=== PATIENT | female | born 1930 | race Caucasian/White ===

== ENCOUNTER 2018-03-21 15:10 | Inpatient (IN) ==
[2018-03-21] MEDS ORDERED: PROMETHAZINE 25 MG TABLET PO ONE (15:41)
--- NOTE | 2018-03-21 15:51 | Emergency Department Note ---
Nausea/Vomiting/Diarrhea HPI - General Chief complaint: Nausea/Vomiting/Diarrhea Stated complaint: nauseous Time Seen by Provider: 03/21/18 15:25 Source: patient Mode of arrival: wheelchair Limitations: no limitations - History of Present Illness HPI Narrative: 87-year-old female presents with nausea since yesterday. She states she has felt sick for about 3 weeks. She has been here very frequently in the last week. She was diagnosed with a sinus infection Levaquin and is taking 500 mg daily. She also fell 2 days ago and has a broken rib. She was taking tramadol for this but stopped taking it yesterday because she was feeling nauseated and thought it was making her nauseous. She has had a couple bowel movements yesterday which were small and loose. She takes Linzess which makes her stools loose. She is also got chronic constipation. She denies any abdominal pain. She states she has left-sided rib pain. She denies cough. She states her sinus stuff is better. She denies any urinary symptoms. She states she just feels sick and it comes and goes. - Related Data Home Medications Medication Instructions Recorded Confirmed latanoprost 0.005 % eye drops 1 drp OPHTHALMIC QDAY ml 12/04/14 03/08/18 linaclotide 290 mcg capsule 290 mcg PO QDAY 09/25/15 03/08/18 zolpidem 5 mg tablet 5 mg PO QHS PRN 30 Days #30 tab 09/11/17 03/08/18 Previous Rx's Medication Instructions Recorded amlodipine 5 mg tablet 5 mg PO QDAY #90 tab 10/05/17 losartan 50 mg tablet 50 mg PO QDAY #90 tab 10/05/17 omeprazole 20 mg capsule,delayed 20 mg PO QDAY #90 cap 10/05/17 release amoxicillin 875 mg tablet 875 mg PO BID #20 tab 03/08/18 Levofloxacin [Levaquin] 500 mg PO DAILY #10 tab 03/16/18 traMADol [Ultram] 50 mg PO Q6HP PRN #30 tab 03/18/18 Allergies Allergy/AdvReac Type Severity Reaction Status Date / Time No Known Drug Allergies Allergy Verified 03/18/18 06:23 Review of Systems All systems ED: reviewed and negative except as stated. Past Medical History - Past Medical History Medical history: Reports: arthritis, CHF, hyperlipidemia, hypertension, renal disease, other Psychiatric history: Reports: no psych history [employer]KE[employer] history: Reports: non-contributory Surgical history ED: Reports: other (no abdominal surgeries) Family history: Reports: non-contributory - Social History smoking status: Former smoker Alcohol use: Reports: None Drug use: Reports: none Physical Exam Limitations: no limitations General appearance: alert, in no apparent distress Head: atraumatic Eye: Present: normal appearance. Absent: conjunctival injection Neck: Present: normal inspection, full ROM Chest: Present: normal inspection, symmetric chest wall rise, tenderness (Right side lower ribs tender) Respiratory: Present: other (Mild decreased left lower lobe due to splinting). Absent: rales/crackles Cardiovascular: Present: regular rate, normal heart sounds Abdominal: Present: soft, normal bowel sounds. Absent: tenderness Extremities: Present: normal inspection, full ROM Neurological: Present: alert, oriented X3 Psychiatric: Present: normal affect, normal mood Skin: Present: warm, dry, intact Course Vital Signs Temperature 98.6 F 03/21/18 15:10 Pulse Rate 73 03/21/18 15:10 Respiratory Rate 14 03/21/18 15:10 Blood Pressure 153/83 03/21/18 15:10 Pulse Oximetry (%) 98 03/21/18 15:10 Temperature 98.6 F 03/21/18 15:10 Pulse Rate 84 03/21/18 19:12 Respiratory Rate 18 03/21/18 19:12 Blood Pressure 172/85 03/21/18 19:12 Pulse Oximetry (%) 100 03/21/18 19:12 Nausea/Vomiting/Diarrhea - Lab Data Lab results reviewed: Yes I reviewed the patient's lab results. Result diagrams: 03/21/18 16:40 03/21/18 16:40 Lab Results 03/21/18 03/21/18 03/21/18 Range/Units 16:33 16:40 16:40 WBC 11.4 H (4.5-11.0) K/mcL RBC 4.37 (4.00-5.20) M/mcL Hgb 13.0 (12.0-15.0) g/dL Hct 38.3 (36.0-48.0) % MCV 87.7 (80.0-100.0) fL MCH 29.6 (26.0-34.0) pg MCHC 33.8 (31.0-36.0) g/dL RDW 13.4 (11.5-14.5) % Plt Count 253 (140-440) K/mcL MPV 8.9 (7.4-10.4) fL Gran % 78.0 (38.0-78.0) % Lymph % (Auto) 12.6 L (15.5-49.0) % [place] % (Auto) 7.7 (1.0-12.0) % Eos % (Auto) 1.1 (0.0-7.0) % Baso % (Auto) 0.6 (0.0-2.0) % Gran # 8.9 H (1.8-8.0) K/mcL Lymph # (Auto) 1.4 L (1.5-4.8) K/mcL [place] # (Auto) 0.9 (0.1-0.9) K/mcL Eos # (Auto) 0.1 (0.0-0.7) K/mcL Baso # (Auto) 0.1 (0.0-0.3) K/mcL Sodium 125 L (133-145) mmol/L Potassium 4.0 (3.3-5.1) mmol/L Chloride 88 L (96-108) mmol/L Carbon Dioxide 23 (22-30) mmol/L Anion Gap 14.0 (8-16) BUN 21 (8-23) mg/dl Creatinine 1.1 (0.6-1.1) mg/dl GFR Calculation 45 Glucose 113 H (70-105) mg/dL Calcium 9.1 (8.6-10.4) mg/dl Total Bilirubin 0.5 (0.0-1.0) mg/dL AST 26 (0-37) U/l ALT 20 (0-40) U/l Alkaline Phosphatase 102 (39-117) U/L Total Protein 7.5 (5.9-8.4) gm/dL Albumin 4.2 (3.2-5.2) gm/dL Globulin 3.3 (2.2-3.7) gm/dL Albumin/Globulin Ratio 1.3 (1.0-2.3) Urine Color Yellow Urine Appearance Hazy Urine pH 6.0 (5.0-9.0) Ur Specific [place] 1.017 (1.000-1.035) Urine Protein Neg (NEG) mg/dL Urine Glucose (UA) Negative (NEG) mg/dL Urine Ketones Neg (NEG) mg/dL Urine Occult Blood Neg (<0.03) mg/dL Urine Nitrate Neg (NEG) Urine Bilirubin Neg (NEG) mg/dL Urine Urobilinogen Neg (NEG) mg/dL Ur Leukocyte Esterase 25 A (NEG) /uL Urine RBC 4 H (0-1) /hpf Urine WBC 12 H (0-4) /hpf Ur Squamous Epith Cells 7 H (0-4) /hpf Ur Transition Epith Cell < 1 (0-2) /hpf Urine Bacteria 0 (0) /hpf Hyaline Casts 7 H (0-2) /lpf Urine Mucus Few (0) /hpf Ur Culture Indicated? No - Radiology Data Radiology results reviewed: Yes I reviewed the patient's radiology results. Mild stable cardiomegaly. Nonspecific stool gas pattern - most likely represents an atypical ileus Disposition Pt seen by BUS STARTER/PA only: Yes Clinical Impression: Hyponatremia, Ileus, Nausea, Rib fracture Disposition: Xfer As Inpt ([facility]) Condition: Fair Referrals: Tarik Dean MD [Primary Care Provider] -
--- NOTE | 2018-03-21 17:15 | XRay Report ---
CLINICAL INFORMATION: nausea COMPARISON: 03/17/2018 FINDINGS: Stomach is mildly dilated contains moderate fluid. Small bowel is grossly normal. The transverse colonic segment is mildly dilated with decompression of the descending and rectosigmoid region. No free air. IMPRESSION: Nonspecific stool gas pattern - most likely represents an atypical ileus Interpreted and Authenticated by: Mikel Benitez 03/21/18
--- NOTE | 2018-03-21 17:17 | XRay Report ---
CLINICAL INFORMATION: weakness, rib fx COMPARISON: 03/18/2018 FINDINGS: Mild cardiomegaly is unchanged. Mediastinum and pulmonary vessels are normal. Calcified granulomas in the perihilar region seen as before - lungs are otherwise. No effusions. IMPRESSION: Mild stable cardiomegaly. Interpreted and Authenticated by: Mikel Benitez 03/21/18
[2018-03-21 17:36] LABS: Appearance,Urine HAZY; Bacteria,Urine 0 /hpf (0); Bilirubin,Urine NEG (NEG); Color,Urine YELLOW; Glucose,Urine (UA) NEGATIVE (NEG); Leukocyte Esterase,Urine 25 /uL (NEG); Mucus,Urine FEW /hpf (0); Protein,Urine NEG (NEG); Specific Gravity,Urine 1.017 (1.000-1.035); Urine Blood NEG mg/dL (<0.03); Urine Hyaline Cast 7 /lpf (0-2); Urine RBC 4 /hpf (0-1); Urine Squamous Epithelial Cell 7 /hpf (0-4); Urine Transitional Epi Cells < 1 /hpf (0-2); Urine WBC 12 /hpf (0-4); Urobilinogen,Urine NEG (NEG)
[2018-03-21 17:39] LABS: Basophils # (Auto) 0.1 K/mcL (0.0-0.3); Basophils % (Auto) 0.6 % (0.0-2.0); Eosinophils # (Auto) 0.1 K/mcL (0.0-0.7); Eosinophils % (Auto) 1.1 % (0.0-7.0); Lymphocytes # (Auto) 1.4 K/mcL (1.5-4.8); Lymphocytes % (Auto) 12.6 % (15.5-49.0); Mean Cell Volume 87.7 fL (80.0-100.0); Mean Corpuscular HGB Conc 33.8 g/dL (31.0-36.0); Mean Corpuscular Hemoglobin 29.6 pg (26.0-34.0); Monocytes # (Auto) 0.9 K/mcL (0.1-0.9); Monocytes % (Auto) 7.7 % (1.0-12.0); Platelet Count 253 K/mcL (140-440); RBC 4.37 M/mcL (4.00-5.20); Red Cell Distribution Width 13.4 % (11.5-14.5)
[2018-03-21 17:52] LABS: ALT/SGPT 20 U/l (0-40); Albumin 4.2 gm/dL (3.2-5.2); Albumin/Globulin Ratio 1.3 (1.0-2.3); Alkaline Phosphatase 102 U/L (39-117); Blood Urea Nitrogen 21 mg/dl (8-23)
[2018-03-21] MEDS ORDERED: METOCLOPRAMIDE 5 MG TABLET PO ONE (18:13)
[2018-03-21] MEDS ORDERED: PROCHLORPERAZINE MALEATE 10 MG TABLET PO ONE (18:31)
[2018-03-21] MEDS ORDERED: ELECTROLYTE,ORAL 1,000 ML SOLUTION PO ONE (18:38)
--- NOTE | 2018-03-21 20:38 | Internal Med History&Physical ---
Medical - H&P: HPI Patient information: Note initiated : 03/21/18 at 8:32 pm Service Date, if different from initiated Date: [] Patient: Hany Barfield 87 y/o F admitted on for nauseous. Chief Complaint: [] History of present illness: Ms. Barfield is a 87 year old F with history of chronic kidney disease, chronic constipation on Linzess, presented to the emergency room today for not feeling well. The patient notes that she just does not feel well, nauseous for the last day or 2, wants to vomit but not able to. She also has not had any bowel movement since yesterday. She denies any other complaints. She has chest pain on the left side due to a recent fracture. She denies any fever chills just notes she is not feeling well is weak and has some dizziness. The patient notes that usually she has loose stools, because she takes Linzess for chronic constipation and since yesterday has not had any bowel movements. She notes that she has been taking her Linzess on a regular basis. The patient has not been feeling well for the last 3 weeks, she has been seen in the ED 4 times, and once in the clinic. This is excluding this visit. On reviewing the ED notes it seems that she was seen on 03 March for chest pain, workup was negative. Then she was seen on the in the primary care clinic for upper respiratory tract symptoms. She was prescribed amoxicillin at that time. She notes that she was compliant with same. Her symptoms do not resolve with this prescription. She was seen on 16 March for cold flulike symptoms possible sinusitis, and amoxicillin was changed to levofloxacin and she was given a 10-day oral course. On 17 March the very next day the patient was seen in the ED for abdominal pain discomfort obstruction and constipation. She had an x-ray which showed possible obstruction CT of the abdomen was done which was negative for acute obstructive process. She was given an enema in the ED which helped. On 18 March the patient notes that she fell from the chair and was seen again in the ED for left sided chest pain and it was noted that she had a fracture on 1 rib. She was prescribed some tramadol, which she notes made her feel nauseous. And she stopped taking it. She presented today with symptoms as mentioned above. In the ER patient is afebrile temperature 98.6, heart rate 73 respirations 14, blood pressure 125/69 saturating 100% on room air, She has a mild leukocytosis WBC count of 11.4, hemoglobin 13 platelets 253, sodium is low at 125 potassium 4.0 bicarbonate 23 chloride 88 creatinine 1.1 glucose 113, UA has mild leukocyte esterase positive. Chest x-ray is negative shows mild stable cardiomegaly. Abdominal x-ray done shows nonspecific stool pattern possible Ileus Given patient's low sodium weakness some nausea and multiple rounds to the ED the patient is being admitted to the hospital for further management. The patient admits to having decreased oral intake for the last 2 days, she notes that she has been trying to keep yourself hydrated before that but did not eat very much. 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) Chronic Kidney Disease (Chronic) Renal insufficiency (Chronic 08/26/12) Renal artery stenosis (Chronic 08/06/14) Proteinuria (Chronic) Malignant lymphoma (Chronic) Hypertensive renal disease (Chronic) Essential hypertension (Chronic) Hyperlipidemia (Chronic) Glaucoma (Chronic) Constipation (Chronic) Chronic kidney disease, stage III (moderate) (Chronic) 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/06/14) Anemia, iron deficiency (Chronic) 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) Non-Hodgkin's lymphoma (Chronic) Surgical history: Past Surgical History (Last Reviewed 03/08/18 @ 11:39 by Sahara Ferris PA-C) History of colonoscopy (Chronic 02/27/15) History of reduction mammoplasty (Chronic) History of hysterectomy (Chronic) History of cholecystectomy (Chronic) History of esophagogastroduodenoscopy (Chronic 02/27/15) Pertinent family history: Family History (Last Reviewed 03/08/18 @ 11:39 by Sahara Ferris PA-C) Mother Malignant neoplasm of breast Essential hypertension Sister Malignant neoplasm of ovary Brother Malignant neoplasm of prostate Medical - H&P: Meds Home Medications Medication Instructions Recorded Confirmed Type latanoprost 0.005 % eye drops 1 drp OPHTHALMIC QDAY ml 12/04/14 03/21/18 History linaclotide 290 mcg capsule 290 mcg PO QDAY 09/25/15 03/21/18 History zolpidem 5 mg tablet 5 mg PO QHS PRN 30 Days #30 tab 09/11/17 03/21/18 History amlodipine 5 mg tablet 5 mg PO QDAY #90 tab 10/05/17 03/21/18 Rx losartan 50 mg tablet 50 mg PO QDAY #90 tab 10/05/17 03/21/18 Rx omeprazole 20 mg capsule,delayed 20 mg PO QDAY #90 cap 10/05/17 03/21/18 Rx release Levofloxacin [Levaquin] 500 mg PO DAILY #10 tab 03/16/18 03/21/18 Rx traMADol [Ultram] 50 mg PO Q6HP PRN #30 tab 03/18/18 03/21/18 Rx Allergies Allergy/AdvReac Type Severity Reaction Status Date / Time No Known Drug Allergies Allergy Verified 03/18/18 06:23 Medical - H&P: Exam - Constitutional Vitals: Temp Pulse Resp BP Pulse Ox 98.6 F 84 18 172/85 100 03/21/18 15:10 03/21/18 19:12 03/21/18 19:12 03/21/18 19:12 03/21/18 19:12 Exam: GENERAL: The patient is a well-developed, well-nourished in no apparent distress. Is alert and oriented x3. VITAL SIGNS: Reviewed and as noted elsewhere. HEENT: Head is normocephalic and atraumatic. Extraocular muscles are intact. Pupils are equal, round, and reactive to light. Nares appeared normal. Mouth appears any without lesions. Mucous membranes are moist. NECK: Normal to inspection, Supple, No lymphadenopathy or thyromegaly. LUNGS: Air entry equal on both sides, no wheezing, crackles or rhonchi noted. No accessory muscles of respiration HEART: Regular rate and rhythm normal, S1 and S2 heard, no Gallop, S3 or Rub Noted, No Gross murmur heard. ABDOMEN: Soft, nontender, and mild distention in the hypogastric region. Hypoactive bowel sounds. No hepatosplenomegaly was noted. EXTREMITIES: No cyanosis, clubbing, rash, lesions or edema. NEUROLOGIC: Cranial nerves II through XII are grossly intact. Motor and Sensory System Grossly Intact PSYCHIATRIC: Normal affect, Normal Mood. Appropriate Behavior. SKIN: No ulceration or wounds noted, No jaundice, No rash noted. Medical - H&P: Reslt - Labs CBC & Chem 7: 03/21/18 16:40 03/21/18 16:40 Labs: Short CBC 03/21/18 Range/Units 16:40 WBC 11.4 H (4.5-11.0) K/mcL Hgb 13.0 (12.0-15.0) g/dL Hct 38.3 (36.0-48.0) % Plt Count 253 (140-440) K/mcL BMP 03/21/18 16:40 Sodium 125 L Potassium 4.0 Chloride 88 L Carbon Dioxide 23 BUN 21 Creatinine 1.1 Glucose 113 H Calcium 9.1 Liver Function 03/21/18 Range/Units 16:40 Total Bilirubin 0.5 (0.0-1.0) mg/dL AST 26 (0-37) U/l ALT 20 (0-40) U/l Alkaline Phosphatase 102 (39-117) U/L Albumin 4.2 (3.2-5.2) gm/dL Urine 03/21/18 Range/Units 16:33 Urine Color Yellow Urine Appearance Hazy Urine pH 6.0 (5.0-9.0) Ur Specific [place] 1.017 (1.000-1.035) Urine Protein Neg (NEG) mg/dL Urine Glucose (UA) Negative (NEG) mg/dL Medical - H&P: A/P - Narrative A/P Narrative: A/P Hyponatremia Nausea Constipation. Urinary tract infection. Chronic Kidney Disease Dehydration Poor oral intake h/o colectomy Sinusitis/ resolved. Plan Admit to med surg IV saline for tonight for hydration, check urine osm, serum osm, urine sodium, Tsh IV rocehin for now, should cover sinusitis and UTI bugs, pt notes she has chr urinary frequency no real change from baseline. IV ppi, and zofran for nausea. Ileus, will be managed medically, recent CT is neg, will see if she has BM by tomorrow if not repeat CT abdomen, before going for more aggresive treatment Given her recent use of 2 broad spectrum ABX, will check cdiff Renal function is stable. DVT hep sq Diet regular Full code. Social History - Tobacco smoking status: Former smoker - Alcohol alcohol intake frequency: does not drink
[2018-03-21] MEDS ORDERED: NALOXONE HCL 0.4 MG/ML VIAL IV PRN (20:46)
[2018-03-21] MEDS ORDERED: ONDANSETRON 4 MG/2 ML VIAL IV PRN (20:46)
[2018-03-21] MEDS ORDERED: cefTRIAXone 1 GM in DEXTROSE 5% IN WATER 50 ML IV SCH (20:46)
[2018-03-21] MEDS ORDERED: ALBUTEROL SULFATE 2.5 MG/3 ML NEBULIZER NEB PRN (20:46)
[2018-03-21 21:35] LABS: Osmolality,Urine 476 mOsm/kg (80-1000)
[2018-03-21] MEDS: 0.9 % SODIUM CHLORIDE 1,000 ML IV SCH (22:18)
[2018-03-21] MEDS: HEPARIN 5,000 UNIT/ML VIAL SQ SCH (22:22)
[2018-03-21] MEDS: ACETAMINOPHEN 650 MG/65 ML BOTTLE IV SCH (22:24)
[2018-03-21] MEDS: 0.9 % SODIUM CHLORIDE 10 ML SYRINGE IV SCH (22:25)
[2018-03-21] MEDS: PANTOPRAZOLE 40 MG VIAL IV SCH (22:34)
[2018-03-21] MEDS: cefTRIAXone 1 GM VIAL IV SCH (22:36)
[2018-03-22] MEDS: 0.9 % SODIUM CHLORIDE 10 ML SYRINGE IV SCH ×3 (06:15→20:47)
[2018-03-22] MEDS ORDERED: BISACODYL 10 MG SUPP.RECT PR ONE (06:41)
[2018-03-22] MEDS ORDERED: POLYVINYL ALCOHOL OPHTH DROPS 15ML BOTTLE OU PRN (06:46)
[2018-03-22] MEDS: PANTOPRAZOLE 40 MG VIAL IV SCH ×2 (06:59→17:35)
[2018-03-22] MEDS: HEPARIN 5,000 UNIT/ML VIAL SQ SCH ×2 (08:50→20:42)
[2018-03-22] MEDS: LOSARTAN 50 MG TABLET PO SCH (08:52)
[2018-03-22] MEDS: amLODIPine 5 MG TABLET PO SCH (08:52)
[2018-03-22] MEDS: ACETAMINOPHEN 650 MG/65 ML BOTTLE IV SCH ×3 (08:54→20:43)
--- NOTE | 2018-03-22 08:55 | XRay Report ---
CLINICAL INFORMATION: ileus COMPARISON: 03/21/2018 FINDINGS: The entire gastrointestinal tract is now decompressed with only minimal gas in the stomach, small bowel and colon. No free air, soft tissue mass, organomegaly or pathologic calcification. IMPRESSION: Decompressed gastrointestinal tract typically indicative of poor oral intake, nausea/vomiting and/or diarrhea. No evidence of bowel obstruction Interpreted and Authenticated by: Mikel Benitez 03/22/18
[2018-03-22 11:17] LABS: Basophils # (Auto) 0 K/mcL (0.0-0.3); Basophils % (Auto) 0.5 % (0.0-2.0); Eosinophils # (Auto) 0.1 K/mcL (0.0-0.7); Eosinophils % (Auto) 1.6 % (0.0-7.0); Granulocytes % (Auto) 55.7 % (38.0-78.0); Lymphocytes # (Auto) 2.5 K/mcL (1.5-4.8); Lymphocytes % (Auto) 33.7 % (15.5-49.0); Mean Cell Volume 89.5 fL (80.0-100.0); Mean Corpuscular HGB Conc 33.7 g/dL (31.0-36.0); Mean Corpuscular Hemoglobin 30.2 pg (26.0-34.0); Monocytes # (Auto) 0.6 K/mcL (0.1-0.9); Monocytes % (Auto) 8.5 % (1.0-12.0); Platelet Count 230 K/mcL (140-440); RBC 3.79 M/mcL (4.00-5.20); Red Cell Distribution Width 14.2 % (11.5-14.5)
--- NOTE | 2018-03-22 11:30 | Internal Med Progress Note ---
Medical - PN: Subj Patient information: Note initiated : 03/22/18 at 11:29 am Service Date, if different from initiated Date: [] Patient: Hany Barfield 87 y/o F admitted on 03/21/18 for nauseous. Chief Complaint: [] Interval history: Ms. Barfield is a 87 year old F with history of chronic kidney disease, chronic constipation on Linzess, presented to the emergency room today for not feeling well. The patient notes that she just does not feel well, nauseous for the last day or 2, wants to vomit but not able to. She also has not had any bowel movement since yesterday. She denies any other complaints. She has chest pain on the left side due to a recent fracture. She denies any fever chills just notes she is not feeling well is weak and has some dizziness. The patient notes that usually she has loose stools, because she takes Linzess for chronic constipation and since yesterday has not had any bowel movements. She notes that she has been taking her Linzess on a regular basis. The patient has not been feeling well for the last 3 weeks, she has been seen in the ED 4 times, and once in the clinic. This is excluding this visit. On reviewing the ED notes it seems that she was seen on 03 March for chest pain, workup was negative. Then she was seen on the in the primary care clinic for upper respiratory tract symptoms. She was prescribed amoxicillin at that time. She notes that she was compliant with same. Her symptoms do not resolve with this prescription. She was seen on 16 March for cold flulike symptoms possible sinusitis, and amoxicillin was changed to levofloxacin and she was given a 10-day oral course. On 17 March the very next day the patient was seen in the ED for abdominal pain discomfort obstruction and constipation. She had an x-ray which showed possible obstruction CT of the abdomen was done which was negative for acute obstructive process. She was given an enema in the ED which helped. On 18 March the patient notes that she fell from the chair and was seen again in the ED for left sided chest pain and it was noted that she had a fracture on 1 rib. She was prescribed some tramadol, which she notes made her feel nauseous. And she stopped taking it. She presented today with symptoms as mentioned above. In the ER patient is afebrile temperature 98.6, heart rate 73 respirations 14, blood pressure 125/69 saturating 100% on room air, She has a mild leukocytosis WBC count of 11.4, hemoglobin 13 platelets 253, sodium is low at 125 potassium 4.0 bicarbonate 23 chloride 88 creatinine 1.1 glucose 113, UA has mild leukocyte esterase positive. Chest x-ray is negative shows mild stable cardiomegaly. Abdominal x-ray done shows nonspecific stool pattern possible Ileus Given patient's low sodium weakness some nausea and multiple rounds to the ED the patient is being admitted to the hospital for further management. The patient admits to having decreased oral intake for the last 2 days, she notes that she has been trying to keep yourself hydrated before that but did not eat very much. 03/22 Patient seen and examined, no acute overnight events, this morning sitting in the chair comfortably having a breakfast. No nausea no vomiting reported. No bowel movements. Still reports chest pain at the site of the rib fracture. The patient's abdominal x-ray shows resolution of ileus patient has not had active bowel movements. We will give her a rectal suppository. According to the x-ray the colon and the GI tract is compressed I doubt if there is a large stool load present. WBC count is now back to normal, chemistry results is pending Her urine possum was more than 100, serum awesome was 270, urine sodium was less than 20, likely secondary to GI losses or decreased oral intake. Pertinent ROS: Denies headache, dizziness Denies chest pain, palpitations Denies cough or shortness of breath Denies abdominal pain, nausea or vomiting. constipation reported - Constitutional Vitals: Vital Signs Temp Pulse Resp BP Pulse Ox 97.8 F 75 14 150/60 97 03/22/18 11:24 03/22/18 03:10 03/22/18 11:24 03/22/18 11:24 03/22/18 11:24 Period Temp Pulse Resp BP Sys/Tinsley Pulse Ox Last 24 Hr 97.5 F-98.6 F 69-85 14-20 125-178/60-85 94-100 Intake and Output 03/21/18 03/22/18 03/22/18 21:59 05:59 13:59 Intake Total 65 / 65 973 / 973 Output Total 650 / 650 600 / 600 Balance -585 / -585 373 / 373 Weight 122 lb Intake & Output: Intake & Output 03/21/18 03/22/18 03/22/18 21:59 05:59 13:59 Intake Total 65 / 65 973 / 973 Output Total 650 / 650 600 / 600 Balance -585 / -585 373 / 373 Weight 122 lb Intake: IV 65 / 65 733 / 733 Sodium Chloride 0.9% 1,000 ml @ 668 / 668 84 mls/hr IV .[id number] [facility] Rx#: [id number] Oral 0 / 0 240 / 240 Output: Void Amount 650 / 650 600 / 600 Other: Meal Breakfast Percent of Meal Consumed 100% Urine Appearance Clear Urine Color Pale Urine Odor Normal Stool Size Large Stool Color Herminio Colored Stool Consistency Soft Loose # Voids 1 # Bowel Movements 1 Exam: Constitutional; Afebrile, cooperative, alert, not in distress. Eyes- No icterus, , No periorbital swelling Ears- Ext ear normal, hearing normal to conversation. Neck- Midline trachea, supple Respiratory system: Air Entry equal on both sides, No crackles or wheezing, no rhonchi. CVS- Rate rhythm regular, S1,S2 heard, no gallop, no rub. Abdomen- Soft nontender abdomen, no organomegaly, no tenderness, no guarding or rigidity, B[employer]K T[employer]IVER- AOOx3, moving all extremities, no gross focal deficit noted. Medical - PN: Obj Da - Labs CBC & Chem 7: 03/22/18 07:30 03/21/18 16:40 Labs: Abnormal Lab Results 03/22/18 03/21/18 03/21/18 07:30 16:40 16:40 WBC RBC 3.79 L Hgb 11.4 L Hct 33.9 L Lymph % (Auto) Gran # Lymph # (Auto) Sodium 125 L Chloride 88 L Glucose 113 H Osmolality Magnesium 2.6 H TSH 5.67 H Ur Leukocyte Esterase Urine RBC Urine WBC Ur Squamous Epith Cells Hyaline Casts 03/21/18 03/21/18 03/21/18 16:40 16:33 16:30 WBC 11.4 H RBC Hgb Hct Lymph % (Auto) 12.6 L Gran # 8.9 H Lymph # (Auto) 1.4 L Sodium Chloride Glucose Osmolality 270 L Magnesium TSH Ur Leukocyte Esterase 25 A Urine RBC 4 H Urine WBC 12 H Ur Squamous Epith Cells 7 H Hyaline Casts 7 H Meds: Medications Albuterol Sulfate (Ventolin) 2.5 mg NEB Q2HP PRN PRN Reason: Shortness Of Breath Amlodipine Besylate (Norvasc) 5 mg PO QDAY [facility] Last Admin: 03/22/18 08:52 Dose: 5 mg Artificial Tears (Artificial Tears Ophth Drops) 1 gtt OU DAILYP PRN PRN Reason: Dry Eye(s) Ceftriaxone Sodium (Rocephin) 1 gm IV DAILY [facility] Last Admin: 03/21/18 22:36 Dose: 1 gm Heparin Sodium (Porcine) (Heparin) 5,000 unit SQ Q12 [facility] Last Admin: 03/22/18 08:50 Dose: 5,000 unit Sodium Chloride (Sodium Chloride 0.9%) 1,000 mls @ 84 mls/hr IV .[id number] [facility] Last Infusion: 03/22/18 06:15 Dose: 0 mls/hr Acetaminophen (Ofirmev) 650 mg in 65 mls @ 130 mls/hr IV TID [facility] Last Infusion: 03/22/18 09:24 Dose: Infused Latanoprost (Xalatan Ophth Drops) 1 gtt OU DAILY [facility] Losartan Potassium (Cozaar) 50 mg PO DAILY [facility] Last Admin: 03/22/18 08:52 Dose: 50 mg Naloxone HCl (Narcan) 0.1 mg IV Q2MIN PRN PRN Reason: Opiate Reversal Ondansetron HCl (Zofran) 4 mg IV Q6HP PRN PRN Reason: Nausea And Vomiting Pantoprazole Sodium (Protonix) 40 mg IV BIDAC [facility] Last Admin: 03/22/18 06:59 Dose: 40 mg Brinzolamide 1% Ophthalmic Suspension 1 dose OU BID [facility] Cyclosporine [ Restasis] 0.05% Ophthalmic Emulsion 1 dose OU BID [facility] Last Admin: 03/22/18 09:00 Dose: Not Given Linaclotide (Linzess () 290 Mcg Capsule) 1 dose PO DAILY [facility] Sodium Chloride (Saline Flush) 10 ml IV Q8 [facility] Last Admin: 03/22/18 06:15 Dose: Not Given Tramadol HCl (Ultram) 50 mg PO Q6HP PRN PRN Reason: Pain Zolpidem Tartrate (Ambien) 5 mg PO HSP PRN PRN Reason: Insomnia Medical - PN: A/P - Time Spent With Patient Total time spent is greater than 50% in coordination of care (as documented) at patient's floor/unit and/or counseling patient: - Narrative A/P Narrative: A/P Hyponatremia Nausea Constipation. Urinary tract infection. Chronic Kidney Disease Dehydration Poor oral intake h/o colectomy Sinusitis/ resolved. Plan IV saline for tonight for hydration, tsh mildly elevated, urine osm > 100, serum 270, urine sodium < 20, likely8 from her use of linzess and milk of magnesia, decreased intake. monitor IV rocehin for now, should cover sinusitis and UTI bugs, pt notes she has chr urinary frequency no real change from baseline. wbc count improved IV ppi, and zofran for nausea. this is resolved now, pt tolerating po diet well Ileus, resolved. Given her recent use of 2 broad spectrum ABX, will check cdiff Renal function is stable. DVT hep sq Diet regular Full code. Medical - PN: Qual - Stroke Symptom Onset Unknown: No - VTE Deep Vein Thrombosis/Pulmonary Embolism Present on Admission: No
[2018-03-22] MEDS: LINACLOTIDE (LINZESS) 290 MCG CAPSULE PO SCH (11:35)
[2018-03-22] MEDS: BRINZOLAMIDE 1% OU SCH ×2 (11:35→20:46)
[2018-03-22] MEDS: cefTRIAXone 1 GM VIAL IV SCH (11:35)
[2018-03-22] MEDS: LATANOPROST OPHTH DROPS 2.5ML BOTTLE OU SCH (11:36)
[2018-03-22 11:43] LABS: ALT/SGPT 21 U/l (0-40); Albumin 3.4 gm/dL (3.2-5.2); Albumin/Globulin Ratio 1.1 (1.0-2.3); Alkaline Phosphatase 104 U/L (39-117); Bilirubin,Direct < 0.2 mg/dL (0.0-0.3); Blood Urea Nitrogen 15 mg/dl (8-23); Gamma Glutamyl Transpeptidase 52 U/L (5-36); Uric Acid 3.2 mg/dL (2.5-8.0)
[2018-03-22] MEDS: 0.9 % SODIUM CHLORIDE 1,000 ML IV SCH (12:24)
[2018-03-22] MEDS: traMADol 50 MG TABLET PO PRN ×2 (15:49→22:11)
[2018-03-22] MEDS: ZOLPIDEM 5 MG TABLET PO PRN ×2 (22:11→23:50)
[2018-03-23] MEDS: 0.9 % SODIUM CHLORIDE 1,000 ML IV SCH ×2 (01:03→11:21)
[2018-03-23] MEDS: 0.9 % SODIUM CHLORIDE 10 ML SYRINGE IV SCH ×3 (05:45→20:28)
[2018-03-23 06:10] LABS: Basophils # (Auto) 0 K/mcL (0.0-0.3); Basophils % (Auto) 0.6 % (0.0-2.0); Eosinophils # (Auto) 0.1 K/mcL (0.0-0.7); Granulocytes % (Auto) 61.1 % (38.0-78.0); Lymphocytes # (Auto) 2.2 K/mcL (1.5-4.8); Lymphocytes % (Auto) 29.9 % (15.5-49.0); Mean Cell Volume 90.5 fL (80.0-100.0); Mean Corpuscular HGB Conc 33.1 g/dL (31.0-36.0); Mean Corpuscular Hemoglobin 29.9 pg (26.0-34.0); Monocytes # (Auto) 0.5 K/mcL (0.1-0.9); Monocytes % (Auto) 6.4 % (1.0-12.0); Platelet Count 245 K/mcL (140-440); RBC 3.83 M/mcL (4.00-5.20); Red Cell Distribution Width 14.2 % (11.5-14.5)
[2018-03-23 06:30] LABS: ALT/SGPT 23 U/l (0-40); Albumin 3.4 gm/dL (3.2-5.2); Alkaline Phosphatase 104 U/L (39-117); Bilirubin,Direct < 0.2 mg/dL (0.0-0.3); Blood Urea Nitrogen 21 mg/dl (8-23); Gamma Glutamyl Transpeptidase 60 U/L (5-36); Uric Acid 3.1 mg/dL (2.5-8.0)
[2018-03-23] MEDS: PANTOPRAZOLE 40 MG VIAL IV SCH ×2 (06:44→16:40)
[2018-03-23] MEDS: ACETAMINOPHEN 650 MG/65 ML BOTTLE IV SCH ×3 (10:04→20:28)
[2018-03-23] MEDS: cefTRIAXone 1 GM VIAL IV SCH (10:05)
[2018-03-23] MEDS: LOSARTAN 50 MG TABLET PO SCH (10:06)
[2018-03-23] MEDS: amLODIPine 5 MG TABLET PO SCH (10:06)
[2018-03-23] MEDS: BRINZOLAMIDE 1% OU SCH ×2 (10:07→20:27)
[2018-03-23] MEDS: HEPARIN 5,000 UNIT/ML VIAL SQ SCH ×2 (10:13→20:27)
[2018-03-23] MEDS: LINACLOTIDE (LINZESS) 290 MCG CAPSULE PO SCH (11:21)
[2018-03-23] MEDS: LATANOPROST OPHTH DROPS 2.5ML BOTTLE OU SCH (11:33)
--- NOTE | 2018-03-23 12:12 | Internal Med Progress Note ---
Medical - PN: Subj Patient information: Note initiated : 03/23/18 at 12:10 pm Service Date, if different from initiated Date: [] Patient: Hany Barfield 87 y/o F admitted on 03/21/18 for Nauseous, Hyponatremia. Chief Complaint: [] Interval history: Ms. Barfield is a 87 year old F with history of chronic kidney disease, chronic constipation on Linzess, presented to the emergency room today for not feeling well. The patient notes that she just does not feel well, nauseous for the last day or 2, wants to vomit but not able to. She also has not had any bowel movement since yesterday. She denies any other complaints. She has chest pain on the left side due to a recent fracture. She denies any fever chills just notes she is not feeling well is weak and has some dizziness. The patient notes that usually she has loose stools, because she takes Linzess for chronic constipation and since yesterday has not had any bowel movements. She notes that she has been taking her Linzess on a regular basis. The patient has not been feeling well for the last 3 weeks, she has been seen in the ED 4 times, and once in the clinic. This is excluding this visit. On reviewing the ED notes it seems that she was seen on 03 March for chest pain, workup was negative. Then she was seen on the in the primary care clinic for upper respiratory tract symptoms. She was prescribed amoxicillin at that time. She notes that she was compliant with same. Her symptoms do not resolve with this prescription. She was seen on 16 March for cold flulike symptoms possible sinusitis, and amoxicillin was changed to levofloxacin and she was given a 10-day oral course. On 17 March the very next day the patient was seen in the ED for abdominal pain discomfort obstruction and constipation. She had an x-ray which showed possible obstruction CT of the abdomen was done which was negative for acute obstructive process. She was given an enema in the ED which helped. On 18 March the patient notes that she fell from the chair and was seen again in the ED for left sided chest pain and it was noted that she had a fracture on 1 rib. She was prescribed some tramadol, which she notes made her feel nauseous. And she stopped taking it. She presented today with symptoms as mentioned above. In the ER patient is afebrile temperature 98.6, heart rate 73 respirations 14, blood pressure 125/69 saturating 100% on room air, She has a mild leukocytosis WBC count of 11.4, hemoglobin 13 platelets 253, sodium is low at 125 potassium 4.0 bicarbonate 23 chloride 88 creatinine 1.1 glucose 113, UA has mild leukocyte esterase positive. Chest x-ray is negative shows mild stable cardiomegaly. Abdominal x-ray done shows nonspecific stool pattern possible Ileus Given patient's low sodium weakness some nausea and multiple rounds to the ED the patient is being admitted to the hospital for further management. The patient admits to having decreased oral intake for the last 2 days, she notes that she has been trying to keep yourself hydrated before that but did not eat very much. 03/22 Patient seen and examined, no acute overnight events, this morning sitting in the chair comfortably having a breakfast. No nausea no vomiting reported. No bowel movements. Still reports chest pain at the site of the rib fracture. The patient's abdominal x-ray shows resolution of ileus patient has not had active bowel movements. We will give her a rectal suppository. According to the x-ray the colon and the GI tract is compressed I doubt if there is a large stool load present. WBC count is now back to normal, chemistry results is pending Her urine possum was more than 100, serum awesome was 270, urine sodium was less than 20, likely secondary to GI losses or decreased oral intake. 03/23 Patient seen examined, no acute ovenriht events no bm, but x ray shows empty bowels, pt a bit anxious about her bowel regime. Labs stable, tolerating po well Incentive spirometery around 1500 ml Pt wishes to stay one more day, to be sure she is ok. anticipate d/c in AM labs stable. Pertinent ROS: Denies headache, dizziness Denies chest pain, palpitations (chest pain from rib fracture improving) Denies cough or shortness of breath Denies abdominal pain, nausea or vomiting. - Constitutional Vitals: Vital Signs Temp Pulse Resp BP Pulse Ox 97.5 F 72 18 164/68 95 03/23/18 06:47 03/23/18 06:47 03/23/18 06:47 03/23/18 06:47 03/23/18 06:47 Period Temp Pulse Resp BP Sys/Tinsley Pulse Ox Last 24 Hr 97.4 F-98.9 F 72-91 12-18 124-164/62-77 95-96 Intake and Output 03/22/18 03/23/18 03/23/18 21:59 05:59 13:59 Intake Total 490 / 490 1525 / 1525 240 / 240 Output Total 1550 / 1550 1225 / 1225 676 / 676 Balance -1060 / -1060 300 / 300 -436 / -436 Weight 123 lb Intake & Output: Intake & Output 03/22/18 03/23/18 03/23/18 21:59 05:59 13:59 Intake Total 490 / 490 1525 / 1525 240 / 240 Output Total 1550 / 1550 1225 / 1225 676 / 676 Balance -1060 / -1060 300 / 300 -436 / -436 Weight 123 lb Intake: IV 130 / 130 1000 / 1000 Sodium Chloride 0.9% 1,000 ml @ 1000 / 1000 84 mls/hr IV .[id number] [facility] Rx#: [id number] Oral 360 / 360 525 / 525 240 / 240 Output: Void Amount 1550 / 1550 1225 / 1225 675 / 675 # of times incontinent of urine Other: Meal Lunch Breakfast Percent of Meal Consumed 100% 100% Feeding Ability Assist with Tray Set Up Urine Appearance Clear Clear Clear Urine Color Pale Pale Pale Urine Odor Normal Normal Normal # Voids 1 Exam: Constitutional; Afebrile, cooperative, alert, not in distress. Eyes- No icterus, , No periorbital swelling Ears- Ext ear normal, hearing normal to conversation. Neck- Midline trachea, supple Respiratory system: Air Entry equal on both sides, No crackles or wheezing, no rhonchi. CVS- Rate rhythm regular, S1,S2 heard, no gallop, no rub. Abdomen- Soft nontender abdomen, no organomegaly, no tenderness, no guarding or rigidity, [employer]AK[employer]ERK- AOOx3, moving all extremities, no gross focal deficit noted. Medical - PN: Obj Da - Labs CBC & Chem 7: 03/23/18 05:10 03/23/18 05:10 Labs: Abnormal Lab Results 03/23/18 03/23/18 03/22/18 05:10 05:10 07:30 WBC RBC 3.83 L Hgb 11.5 L Hct 34.7 L Lymph % (Auto) Gran # Lymph # (Auto) Sodium Chloride Glucose Osmolality Magnesium GGT 60 H 52 H TSH Ur Leukocyte Esterase Urine RBC Urine WBC Ur Squamous Epith Cells Hyaline Casts 03/22/18 03/21/18 03/21/18 07:30 16:40 16:40 WBC RBC 3.79 L Hgb 11.4 L Hct 33.9 L Lymph % (Auto) Gran # Lymph # (Auto) Sodium 125 L Chloride 88 L Glucose 113 H Osmolality Magnesium 2.6 H GGT TSH 5.67 H Ur Leukocyte Esterase Urine RBC Urine WBC Ur Squamous Epith Cells Hyaline Casts 03/21/18 03/21/18 03/21/18 16:40 16:33 16:30 WBC 11.4 H RBC Hgb Hct Lymph % (Auto) 12.6 L Gran # 8.9 H Lymph # (Auto) 1.4 L Sodium Chloride Glucose Osmolality 270 L Magnesium GGT TSH Ur Leukocyte Esterase 25 A Urine RBC 4 H Urine WBC 12 H Ur Squamous Epith Cells 7 H Hyaline Casts 7 H Meds: Medications Albuterol Sulfate (Ventolin) 2.5 mg NEB Q2HP PRN PRN Reason: Shortness Of Breath Amlodipine Besylate (Norvasc) 5 mg PO QDAY [facility] Last Admin: 03/23/18 10:06 Dose: 5 mg Artificial Tears (Artificial Tears Ophth Drops) 1 gtt OU DAILYP PRN PRN Reason: Dry Eye(s) Ceftriaxone Sodium (Rocephin) 1 gm IV DAILY [facility] Last Admin: 03/23/18 10:05 Dose: 1 gm Heparin Sodium (Porcine) (Heparin) 5,000 unit SQ Q12 [facility] Last Admin: 03/23/18 10:13 Dose: 5,000 unit Sodium Chloride (Sodium Chloride 0.9%) 1,000 mls @ 84 mls/hr IV .[id number] [facility] Last Admin: 03/23/18 11:21 Dose: Not Given Acetaminophen (Ofirmev) 650 mg in 65 mls @ 130 mls/hr IV TID [facility] Last Admin: 03/23/18 10:04 Dose: 130 mls/hr Latanoprost (Xalatan Ophth Drops) 1 gtt OU HS [facility] Losartan Potassium (Cozaar) 50 mg PO DAILY [facility] Last Admin: 03/23/18 10:06 Dose: 50 mg Naloxone HCl (Narcan) 0.1 mg IV Q2MIN PRN PRN Reason: Opiate Reversal Ondansetron HCl (Zofran) 4 mg IV Q6HP PRN PRN Reason: Nausea And Vomiting Pantoprazole Sodium (Protonix) 40 mg IV BIDAC [facility] Last Admin: 03/23/18 06:44 Dose: 40 mg Brinzolamide 1% Ophthalmic Suspension 1 dose OU BID [facility] Last Admin: 03/23/18 10:07 Dose: 1 dose Cyclosporine [ Restasis] 0.05% Ophthalmic Emulsion 1 dose OU BID [facility] Last Admin: 03/23/18 10:08 Dose: Not Given Linaclotide (Linzess () 290 Mcg Capsule) 1 dose PO DAILY [facility] Last Admin: 03/23/18 11:21 Dose: 1 dose Sodium Chloride (Saline Flush) 10 ml IV Q8 [facility] Last Admin: 03/23/18 05:45 Dose: Not Given Tramadol HCl (Ultram) 50 mg PO Q6HP PRN PRN Reason: Pain Last Admin: 03/22/18 22:11 Dose: 50 mg Zolpidem Tartrate (Ambien) 5 mg PO HSP PRN PRN Reason: Insomnia Last Admin: 03/22/18 23:50 Dose: 2.5 mg Medical - PN: A/P - Time Spent With Patient Total time spent is greater than 50% in coordination of care (as documented) at patient's floor/unit and/or counseling patient: - Narrative A/P Narrative: A/P Hyponatremia Nausea Constipation. Urinary tract infection. Chronic Kidney Disease Dehydration Poor oral intake h/o colectomy Sinusitis/ resolved. Plan hyponatremia resolved. urine osm > 100, serum 270, urine sodium < 20, likely from her use of linzess and milk of magnesia, decreased intake. d/c IVF and monitor patient intake. IV rocehin for now, should cover sinusitis and UTI bugs, pt notes she has chr urinary frequency no real change from baseline. wbc count improved IV ppi, and zofran for nausea. this is resolved now, pt tolerating po diet well Ileus, resolved. Given her recent use of 2 broad spectrum ABX, cdiff was checked and is negative. Renal function is stable. DVT hep sq Diet regular Full code. Medical - PN: Qual - Stroke Symptom Onset Unknown: No - VTE Deep Vein Thrombosis/Pulmonary Embolism Present on Admission: No
--- NOTE | 2018-03-23 16:21 | Discharge Summary ---
Medical - DS: Prov Patient information: Note initiated : 03/23/18 at 4:19 pm Service Date, if different from initiated Date: [] Patient: Hany Barfield 87 y/o F admitted on 03/21/18 for Nauseous, Hyponatremia. Chief Complaint: [] Date of admission: 03/21/18 20:38 Discharge date: 03/24/18 Primary care physician: Tarik Dean Consults: 03/21/18 Consult to Physician [CONS] Stat Comment: Consulting Provider: Sharda Lopez Reason For Exam: Physician to Consult Medical - DS: Meds - Discharge Medications Active and Home Medications: Home Medications latanoprost 0.005 % eye drops 1 drp OPHTHALMIC QDAY ml 12/04/14 [History Confirmed 03/21/18 Last Taken 03/20/18 17:00] linaclotide 290 mcg capsule 290 mcg PO QDAY 09/25/15 [History Confirmed Last Taken 03/21/18 07:00] zolpidem 5 mg tablet 5 mg PO QHS PRN 30 Days #30 tab 09/11/17 [History Confirmed 03/21/18 Last Taken 03/16/18 22:00] amlodipine 5 mg tablet 5 mg PO QDAY #90 tab 10/05/17 [Rx Confirmed 03/21/18 Last Taken 03/20/18 17:00] losartan 50 mg tablet 50 mg PO QDAY #90 tab 10/05/17 [Rx Confirmed 03/21/18 Last Taken 03/21/18 07:00] omeprazole 20 mg capsule,delayed release 20 mg PO QDAY #90 cap 10/05/17 [Rx Confirmed 03/21/18 Last Taken 03/21/18 07:00] Levofloxacin [Levaquin] 500 mg PO DAILY #10 tab 03/16/18 [Rx Confirmed 03/21/18 Last Taken 03/21/18 10:00] traMADol [Ultram] 50 mg PO Q6HP PRN #30 tab 03/18/18 [Rx Confirmed 03/21/18 Last Taken 03/20/18 22:00] Brinzolamide 1 gtt OU BID 03/21/18 [History Confirmed 03/21/18 Last Taken 07:00] Dextran 70/Hypromellose [Artificial Tears] 1 gtt OU PRN PRN 03/21/18 [History Confirmed 03/21/18 Last Taken 03/20/18 22:00] cycloSPORINE [Restasis] 1 gtt OU BID 03/21/18 [History Confirmed 03/21/18 Last Taken 03/21/18 07:00] Medical - DS: [facility] course: Mr. Barfield is a 87 year old F with history of chronic kidney disease, chronic constipation on Linzess, presented to the emergency room today for not feeling well. The patient notes that she just does not feel well, nauseous for the last day or 2, wants to vomit but not able to. She also has not had any bowel movement since yesterday. She denies any other complaints. She has chest pain on the left side due to a recent fracture. She denies any fever chills just notes she is not feeling well is weak and has some dizziness. The patient notes that usually she has loose stools, because she takes Linzess for chronic constipation and since yesterday has not had any bowel movements. She notes that she has been taking her Linzess on a regular basis. The patient has not been feeling well for the last 3 weeks, she has been seen in the ED 4 times, and once in the clinic. This is excluding this visit. On reviewing the ED notes it seems that she was seen on 03 March for chest pain, workup was negative. Then she was seen on the in the primary care clinic for upper respiratory tract symptoms. She was prescribed amoxicillin at that time. She notes that she was compliant with same. Her symptoms do not resolve with this prescription. She was seen on 16 March for cold flulike symptoms possible sinusitis, and amoxicillin was changed to levofloxacin and she was given a 10-day oral course. On 17 March the very next day the patient was seen in the ED for abdominal pain discomfort obstruction and constipation. She had an x-ray which showed possible obstruction CT of the abdomen was done which was negative for acute obstructive process. She was given an enema in the ED which helped. On 18 March the patient notes that she fell from the chair and was seen again in the ED for left sided chest pain and it was noted that she had a fracture on 1 rib. She was prescribed some tramadol, which she notes made her feel nauseous. And she stopped taking it. She presented today with symptoms as mentioned above. In the ER patient is afebrile temperature 98.6, heart rate 73 respirations 14, blood pressure 125/69 saturating 100% on room air, She has a mild leukocytosis WBC count of 11.4, hemoglobin 13 platelets 253, sodium is low at 125 potassium 4.0 bicarbonate 23 chloride 88 creatinine 1.1 glucose 113, UA has mild leukocyte esterase positive. Chest x-ray is negative shows mild stable cardiomegaly. Abdominal x-ray done shows nonspecific stool pattern possible Ileus Given patient's low sodium weakness some nausea and multiple rounds to the ED the patient is being admitted to the hospital for further management. The patient admits to having decreased oral intake for the last 2 days, she notes that she has been trying to keep yourself hydrated before that but did not eat very much. 03/22 Patient seen and examined, no acute overnight events, this morning sitting in the chair comfortably having a breakfast. No nausea no vomiting reported. No bowel movements. Still reports chest pain at the site of the rib fracture. The patient's abdominal x-ray shows resolution of ileus patient has not had active bowel movements. We will give her a rectal suppository. According to the x-ray the colon and the GI tract is compressed I doubt if there is a large stool load present. WBC count is now back to normal, chemistry results is pending Her urine possum was more than 100, serum awesome was 270, urine sodium was less than 20, likely secondary to GI losses or decreased oral intake. 03/23 Patient seen examined, no acute ovenriht events no bm, but x ray shows empty bowels, pt a bit anxious about her bowel regime. Labs stable, tolerating po well Incentive spirometery around 1500 ml Pt wishes to stay one more day, to be sure she is ok. anticipate d/c in AM labs stable. 03/24 Further issues overnight labs stable. Patient seems to be preoccupied with her bowel regimen. Otherwise stable for discharge Discharge diagnosis: Hyponatremia UTI generalized weakness - Time Spent with Patient Total time spent providing and/or coordinating discharge services: Greater than 30 minutes Medical - DS: Exam - Constitutional Vitals: Vital Signs Temp Pulse Resp BP Pulse Ox 03/23/18 12:00 97.9 F 76 20 167/75 98 03/23/18 06:47 97.5 F 72 18 164/68 95 03/23/18 04:00 97.4 F 85 14 163/77 96 03/22/18 23:37 97.8 F 88 12 147/73 96 03/22/18 20:00 97.7 F 91 H 12 124/62 95 Intake and Output 03/23/18 03/23/18 03/23/18 05:59 13:59 21:59 Intake Total 1525 / 1525 305 / 305 Output Total 1225 / 1225 1476 / 1476 600 / 600 Balance 300 / 300 -1171 / -1171 -600 / -600 Intake: IV 1000 / 1000 65 / 65 Sodium Chloride 0.9% 1,000 ml @ 1000 / 1000 84 mls/hr IV .[id number] [facility] Rx#: [id number] Oral 525 / 525 240 / 240 Output: Void Amount 1225 / 1225 1475 / 1475 600 / 600 # of times incontinent of urine Other: Meal Breakfast Percent of Meal Consumed 100% Urine Appearance Clear Clear Urine Color Pale Pale Urine Odor Normal Normal # Voids 1 Weight 55.792 kg Patient Weight 03/24/18 05:59 Weight 55.792 kg Medical - DS: Data Labs on day of discharge: Labs from last 24 hours 03/23/18 03/23/18 05:10 05:10 WBC 7.2 RBC 3.83 L Hgb 11.5 L Hct 34.7 L MCV 90.5 MCH 29.9 MCHC 33.1 RDW 14.2 Plt Count 245 MPV 9.1 Gran % 61.1 Lymph % (Auto) 29.9 [place] % (Auto) 6.4 Eos % (Auto) 2.0 Baso % (Auto) 0.6 Gran # 4.4 Lymph # (Auto) 2.2 [place] # (Auto) 0.5 Eos # (Auto) 0.1 Baso # (Auto) 0 Sodium 135 Potassium 3.7 Chloride 100 Carbon Dioxide 23 Anion Gap 12.0 BUN 21 Creatinine 1.0 GFR Calculation 51 Glucose 91 Uric Acid 3.1 Calcium 8.8 Phosphorus 3.0 Magnesium 1.9 Total Bilirubin 0.4 Direct Bilirubin < 0.2 GGT 60 H AST 25 ALT 23 Alkaline Phosphatase 104 Lactate Dehydrogenase 184 Total Protein 6.7 Albumin 3.4 Globulin 3.3 Albumin/Globulin Ratio 1.0 Triglycerides 52 Medical - DS: A/P - Patient/Caregiver Discharge Instructions Activity: as per physical therapy Diet: Regular Diet - Follow up Plan Follow up with: Tarik Dean MD [Primary Care Provider] - Disposition: Home Health Service Prognosis: Fair Rehab Potential: Fair Overall status at discharge: patient is progressing back to baseline Medical - DS: Qual - VTE Deep Vein Thrombosis/Pulmonary Embolism Present on Admission: No
[2018-03-23] MEDS ORDERED: LATANOPROST OPHTH DROPS 2.5ML BOTTLE OU SCH (21:00)
[2018-03-23] MEDS: ZOLPIDEM 5 MG TABLET PO PRN (22:30)
[2018-03-24] MEDS: traMADol 50 MG TABLET PO PRN ×2 (04:44→13:35)
[2018-03-24] MEDS: 0.9 % SODIUM CHLORIDE 10 ML SYRINGE IV SCH (04:46)
[2018-03-24 06:06] LABS: Basophils # (Auto) 0.1 K/mcL (0.0-0.3); Basophils % (Auto) 2.1 % (0.0-2.0); Eosinophils # (Auto) 0.2 K/mcL (0.0-0.7); Eosinophils % (Auto) 3.4 % (0.0-7.0); Granulocytes % (Auto) 47.9 % (38.0-78.0); Lymphocytes # (Auto) 2.5 K/mcL (1.5-4.8); Lymphocytes % (Auto) 39.2 % (15.5-49.0); Mean Cell Volume 89.7 fL (80.0-100.0); Mean Corpuscular HGB Conc 33.2 g/dL (31.0-36.0); Mean Corpuscular Hemoglobin 29.8 pg (26.0-34.0); Monocytes # (Auto) 0.5 K/mcL (0.1-0.9); Monocytes % (Auto) 7.4 % (1.0-12.0); Platelet Count 257 K/mcL (140-440); RBC 3.77 M/mcL (4.00-5.20); Red Cell Distribution Width 14.2 % (11.5-14.5)
[2018-03-24 06:38] LABS: ALT/SGPT 21 U/l (0-40); Albumin 3.4 gm/dL (3.2-5.2); Albumin/Globulin Ratio 1.1 (1.0-2.3); Alkaline Phosphatase 105 U/L (39-117); Bilirubin,Direct < 0.2 mg/dL (0.0-0.3); Blood Urea Nitrogen 18 mg/dl (8-23); Gamma Glutamyl Transpeptidase 68 U/L (5-36); Uric Acid 3.5 mg/dL (2.5-8.0)
[2018-03-24] MEDS: LINACLOTIDE (LINZESS) 290 MCG CAPSULE PO SCH ×2 (06:47→08:41)
[2018-03-24] MEDS: PANTOPRAZOLE 40 MG VIAL IV SCH (06:48)
[2018-03-24] MEDS: BRINZOLAMIDE 1% OU SCH (07:23)
[2018-03-24] MEDS: LOSARTAN 50 MG TABLET PO SCH (08:38)
[2018-03-24] MEDS: HEPARIN 5,000 UNIT/ML VIAL SQ SCH (08:38)
[2018-03-24] MEDS: ACETAMINOPHEN 650 MG/65 ML BOTTLE IV SCH (08:39)
[2018-03-24] MEDS: cefTRIAXone 1 GM VIAL IV SCH (08:42)
[2018-03-24] MEDS ORDERED: LACTULOSE 20 GM/30 ML ORAL.SOL PO ONE (11:54)
[2018-03-24] MEDS ORDERED: POLYETHYLENE GLYCOL 3350 17 GM PACKET PO ONE (11:54)
[2018-03-24] MEDS ORDERED: PNEUMOCOCCAL 23-VAL P-SAC VAC 0.5 ML VIAL IM ONE (16:30)
[2018-03-24] MEDS ORDERED: amLODIPine 5 MG TABLET PO SCH (21:00)
== END 2018-03-24 17:25 | disposition home health service (06) | DRG 641 ==
LOC: ED 15:10 → MEDSUR 20:38
PROVIDERS: ADMIT Internal Medicine; ATTEND Internal Medicine
CPT/HCPCS: 87324; 87449; 90686; 97161; 97166; 99223; 99231; J0131; J0696; J1644; J2405; J7030

== ENCOUNTER 2020-01-16 12:13 | Inpatient (IN) ==
[2020-01-16] MEDS ORDERED: hydrALAZINE 20 MG/ML VIAL IV ONE (12:20)
[2020-01-16 13:07] LABS: POC Blood Urea Nitrogen 24 mg/dl (8-23); POC CO2 23 mmol/L (22-30); POC Calcium, Ionized 1.12 mmol/L (1.16-1.32); POC Chloride 89 mmol/L (96-108); POC Creatinine 1.1 mg/dl (0.6-1.1); POC Glucose, Random 105 mg/dL (70-105); POC Potassium 3.7 mmol/L (3.3-5.1); POC Sodium 123 mmol/L (133-145)
[2020-01-16] MEDS ORDERED: ONDANSETRON 4 MG/2 ML VIAL IV ONE (13:21)
[2020-01-16 13:46] LABS: Basophils # (Auto) 0.05 K/mcL (0.00-0.30); Basophils % (Auto) 0.7 % (0.0-2.0); Eosinophils # (Auto) 0.03 K/mcL (0.00-0.70); Eosinophils % (Auto) 0.4 % (0.0-7.0); Hematocrit 37.2 % (34.1-44.9); Hemoglobin 12.6 g/dL (11.2-15.7); Lymphocytes # (Auto) 2.96 K/mcL (1.50-4.80); Lymphocytes % (Auto) 39.4 % (15.5-49.0); Mean Cell Volume 87.1 fL (80.0-100.0); Mean Corpuscular HGB Conc 33.9 g/dL (31.0-36.0); Mean Platelet Volume 11.4 fL (7.4-10.4); Monocytes # (Auto) 0.64 K/mcL (0.10-0.90); Monocytes % (Auto) 8.5 % (1.0-12.0); Platelet Count 220 K/mcL (140-440); RBC 4.27 M/mcL (3.59-5.38); Red Cell Distribution Width 11.9 % (11.5-14.5); WBC 7.5 K/mcL (4.50-11.00)
[2020-01-16 13:50] LABS: Appearance,Urine CLEAR; Bilirubin,Urine NEG (NEG); Color,Urine YELLOW; Culture Indicated,Urine NO; Glucose,Urine (UA) NEGATIVE (NEG); Ketones,Urine NEG (NEG); Leukocyte Esterase,Urine NEG /uL (NEG); Nitrate,Urine NEG (NEG); Protein,Urine NEG (NEG); Specific Gravity,Urine 1.006 (1.000-1.035); Urine Blood NEG mg/dL (<0.03); Urobilinogen,Urine NEG (NEG)
[2020-01-16 14:07] LABS: ALT/SGPT 16 U/l (0-40); AST/SGOT 24 U/l (0-37); Albumin 4.1 gm/dL (3.2-5.2); Albumin/Globulin Ratio 1.4 (1.0-2.3); Alkaline Phosphatase 104 U/L (39-117); Bilirubin,Total 0.6 mg/dL (0.0-1.0); Blood Urea Nitrogen 23 mg/dl (8-23); Calcium 9.1 mg/dl (8.6-10.4); Carbon Dioxide 21 mmol/L (22-30); Glomerular Filtration Rate 44; Glucose 106 mg/dL (70-105)
[2020-01-16 14:08] LABS: Chloride 86 mmol/L (96-108)
[2020-01-16] MEDS: 0.9 % SODIUM CHLORIDE 1,000 ML IV SCH ×6 (14:17→21:29)
--- NOTE | 2020-01-16 14:27 | Cat Scan Report ---
CLINICAL INFORMATION: Headache nausea COMPARISON: Brain MRI 10/17/2010 TECHNIQUE: 2.5 mm helical slices were obtained in the skull base to vertex. Following reconstruction, axial reformatted images were reviewed at bone and parenchymal windows. The exam was performed using radiation dose optimization techniques including, but not limited to, automated exposure control, adjustment of the mA and/or kV according to patient size and use of iterative reconstruction technique. FINDINGS: The ventricles, sulci, fissures, and cisterns are symmetrically enlarged compatible with mild age-related atrophy. No extra-axial fluid collections are identified. Moderate patchy chronic ischemic changes in the cerebral white matter typical for age.. There is no evidence of hemorrhage, mass effect, or edema. Bone windows show no osseous abnormality. IMPRESSION: Mild atrophy and patchy chronic ischemic changes in the cerebral white matter typical for age.. Interpreted and Authenticated by: Mikel Benitez 01/16/20
--- NOTE | 2020-01-16 15:18 | Emergency Department Note ---
HPI General Chief complaint: Blood Pressure Problem Stated complaint: blood pressure problem Time Seen by Provider: 01/16/20 12:19 Source: patient Mode of arrival: ambulatory Limitations: no limitations History of Present Illness HPI Narrative: Narrative: 89-year-old female presents with generally feeling poor. Was sent over by Dr. Dietz. She was in there for a blood pressure check and her blood pressure was 200/100. They recently doubled her blood pressure medication and she states since that happened she feels horrible and apparently her blood pressure is not any better. Has nausea, weakness, and generally feels poor. No fever or chills. No diarrhea. No cough or cold symptoms. Related Data Home Medications Medication Instructions Recorded Confirmed latanoprost 0.005 % eye drops 1 drp OPHTHALMIC QDAY ml 12/04/14 01/16/20 Brinzolamide 1 gtt OU BID 03/21/18 01/16/20 cyclosporine 1 gtt OU BID 03/21/18 01/16/20 dextran 70-hypromellose 1 gtt OU PRN PRN 03/21/18 01/16/20 ascorbate calcium PO QDAY 05/18/18 01/16/20 cholecalciferol (vitamin D3) 50 2,000 unit PO QDAY 05/18/18 01/16/20 mcg (2,000 unit) capsule linaclotide 290 mcg capsule 290 mcg PO QDAY 05/18/18 01/16/20 lactobacillus combination no.9 4 4,000 mmu cells PO QDAY 05/23/19 01/16/20 billion cell capsule Previous Rx's Medication Instructions Recorded omeprazole 20 mg capsule,delayed 20 mg PO QDAY #30 cap 09/19/19 release hydrochlorothiazide 25 mg tablet 25 mg PO QAM #90 tab 01/12/20 losartan 100 mg tablet 100 mg PO BID #180 tab 01/12/20 Allergies Allergy/AdvReac Type Severity Reaction Status Date / Time aspirin AdvReac Mild Kidney Verified 01/16/20 12:18 issues Review of Systems ROS ROS Narrative: Narrative: All systems ED: reviewed and negative except as stated. 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) Non-Hodgkin's lymphoma (Chronic) Chronic kidney disease, stage III (moderate) (Chronic) Hyponatremia (Chronic) Benign essential HTN (Chronic) Carpal tunnel syndrome on both sides (Chronic) Anxiety (Chronic) Osteoarthritis (Chronic) Chronic constipation (Chronic) Secondary hyperparathyroidism of renal origin (Chronic) Chronic Kidney Disease (Chronic) Renal insufficiency (Chronic 08/26/12) Renal artery stenosis (Chronic 08/06/14) Proteinuria (Chronic) Hypertensive renal disease (Chronic) Essential hypertension (Chronic) Hyperlipidemia (Chronic) Glaucoma (Chronic) Constipation (Chronic) 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/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) Anemia, iron deficiency (Chronic) 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) Osteoporosis (Chronic ~2017) Medical History Abdominal pain (Resolved) 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) Anemia, iron deficiency (Chronic) Anxiety (Chronic) Benign essential HTN (Chronic) Bladder infection, acute (Resolved) 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/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) [place] Carpal tunnel syndrome on both sides (Chronic) Cellulitis of left upper extremity (Resolved) Chronic constipation (Chronic) Chronic Kidney Disease (Chronic) Chronic kidney disease, stage III (moderate) (Chronic) Colon obstruction (Resolved) functional obstruction of the transverse colon Constipation (Chronic) Constipation by delayed colonic transit (Resolved) Essential hypertension (Chronic) I would describe this as isolated systolic hypertension of the elderly, not renal artery stenosis and secondary hypertension Glaucoma (Chronic) 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) Hyperlipidemia (Chronic) Hypertensive renal disease (Chronic) BP not at goal at home , on losartan 75 mg also has renal artery stenosis per CT 03/2018 on Right side Hyponatremia (Chronic) Ileus (Resolved) Non-cardiac chest pain (Resolved) Non-Hodgkin's lymphoma (Chronic) Osteoarthritis (Chronic) Osteoporosis (Chronic ~2017) hip Proteinuria (Chronic) Renal artery stenosis (Chronic 08/06/14) Renal insufficiency (Chronic 08/26/12) Rib fracture (Resolved) Secondary hyperparathyroidism of renal origin (Chronic) PTH 57 at goal for CKD stage III Vitamin D is 37.68, at goal Small B-cell lymphoma (Chronic) Large intestine Urinary tract infection (Resolved) with stress urinary incontinence Surgical History History of carpal tunnel surgery (Acute) History of cholecystectomy (Chronic) History of colonoscopy (Chronic 02/27/15) Dr. Chowdhury - No recurrent Lymphoma, No Polyps History of esophagogastroduodenoscopy (Chronic 02/27/15) Dr. Chowdhury History of hysterectomy (Chronic) reduction msm History of reduction mammoplasty (Chronic) 1986 Family History Mother Malignant neoplasm of breast Essential hypertension Sister Malignant neoplasm of ovary Brother Malignant neoplasm of prostate Social History Smoking Status: Former smoker Alcohol Intake Frequency: does not drink Substance Use: does not use Exam Narrative Narrative: Narrative: General Limitations: no limitations General appearance: alert Head Head: atraumatic and normocephalic Eye Eye: Present normal appearance; Absent conjunctival injection ENT ENT: Present normal exam, normal oropharynx, mucous membranes moist, TM's normal bilaterally and normal external ear exam Neck Neck: Present normal inspection, full ROM and trachea midline; Absent tenderness and lymphadenopathy Chest Chest: Present normal inspection and symmetric chest wall rise Respiratory Respiratory: Present normal lung sounds bilaterally; Absent respiratory distress, rales/crackles, wheezes, stridor and accessory muscle use Cardiovascular Cardiovascular: Present regular rate and normal rhythm Adbominal Abdominal: Present soft and normal bowel sounds; Absent distention, tenderness and guarding Extremities Extremities: Present normal inspection and normal capillary refill; Absent tenderness, pedal edema, pretibial edema and calf tenderness Neurological Neurological: Present alert and oriented X3; Absent motor sensory deficit Psychiatric Psychiatric: Present normal affect and normal mood Skin Skin: Present warm, dry, intact and normal color Course Course Course Narrative: At 1615 I did speak with Dr. Dietz who will consult on the patient. Dr. Neves agrees to accept this patient for admit. Vital Signs Vital signs: Vital Signs Temperature 98.0 F 01/16/20 12:13 Pulse Rate 73 01/16/20 12:13 Respiratory Rate 18 01/16/20 12:13 Blood Pressure 206/89 01/16/20 12:13 Pulse Oximetry (%) 98 01/16/20 12:13 Temperature 98.0 F 01/16/20 12:13 Pulse Rate 95 H 01/16/20 15:51 Respiratory Rate 16 01/16/20 15:51 Blood Pressure 122/84 01/16/20 15:46 Pulse Oximetry (%) 93 01/16/20 15:51 MDM MDM Narrative Medical decision making narrative: Narrative: Lab Data Lab results reviewed: Yes I reviewed the patient's lab results. Result diagrams: 01/16/20 12:59 01/16/20 12:59 Labs: Lab Results 01/16/20 01/16/20 01/16/20 Range/Units 12:35 12:59 12:59 WBC 7.5 (4.50-11.00) K/mcL RBC 4.27 (3.59-5.38) M/mcL Hgb 12.6 (11.2-15.7) g/dL Hct 37.2 (34.1-44.9) % POC Hct 41.0 (36.0-48.0) % MCV 87.1 (80.0-100.0) fL MCH 29.5 (26.0-34.0) pg MCHC 33.9 (31.0-36.0) g/dL RDW 11.9 (11.5-14.5) % Plt Count 220 (140-440) K/mcL MPV 11.4 H (7.4-10.4) fL Gran % 51.0 (38.0-78.0) % Lymph % (Auto) 39.4 (15.5-49.0) % [place] % (Auto) 8.5 (1.0-12.0) % Eos % (Auto) 0.4 (0.0-7.0) % Baso % (Auto) 0.7 (0.0-2.0) % Gran # 3.83 (1.80-8.00) K/mcL Lymph # (Auto) 2.96 (1.50-4.80) K/mcL [place] # (Auto) 0.64 (0.10-0.90) K/mcL Eos # (Auto) 0.03 (0.00-0.70) K/mcL Baso # (Auto) 0.05 (0.00-0.30) K/mcL POC Sodium 123 L (133-145) mmol/L Sodium 122 L (133-145) mmol/L POC Potassium 3.7 (3.3-5.1) mmol/L Potassium 3.7 (3.3-5.1) mmol/L POC Chloride 89 L (96-108) mmol/L Chloride 86 L (96-108) mmol/L Carbon Dioxide 21 L (22-30) mmol/L POC Total CO2 23 (22-30) mmol/L Anion Gap 15.0 (8-16) POC BUN 24 H (8-23) mg/dl BUN 23 (8-23) mg/dl Creatinine 1.1 (0.6-1.1) mg/dl POC Creatinine 1.1 (0.6-1.1) mg/dl GFR Calculation 44 Glucose 106 H (70-105) mg/dL POC Glucose 105 (70-105) mg/dL Calcium 9.1 (8.6-10.4) mg/dl POC WB Ioniz Calcium 1.12 L (1.16-1.32) mmol/L Total Bilirubin 0.6 (0.0-1.0) mg/dL AST 24 (0-37) U/l ALT 16 (0-40) U/l Alkaline Phosphatase 104 (39-117) U/L Total Protein 7.1 (5.9-8.4) gm/dL Albumin 4.1 (3.2-5.2) gm/dL Globulin 3.0 (2.2-3.7) gm/dL Albumin/Globulin Ratio 1.4 (1.0-2.3) Urine Color Yellow Urine Appearance Clear Urine pH 7.0 (5.0-9.0) Ur Specific [place] 1.006 (1.000-1.035) Urine Protein Neg (NEG) mg/dL Urine Glucose (UA) Negative (NEG) mg/dL Urine Ketones Neg (NEG) mg/dL Urine Occult Blood Neg (<0.03) mg/dL Urine Nitrate Neg (NEG) Urine Bilirubin Neg (NEG) mg/dL Urine Urobilinogen Neg (NEG) mg/dL Ur Leukocyte Esterase Neg (NEG) /uL Ur Culture Indicated? No Radiology Data Radiology results reviewed: Yes I reviewed the patient's radiology results. Discharge Plan Patient/Caregiver Discharge Instructions Pt seen by CRM ARCHITECT/PA only: Yes Clinical Impression: Acute hyponatremia, Hypertension, Nausea Patient Disposition: Xfer As Inpt (TS) Condition: Fair Follow up with: Ross Amaya MD, FAAFP [Primary Care Provider] - Basia Lira MD [Physician] - Prescriptions: No Action losartan 100 mg tablet 100 mg PO BID Qty: 180 RF: 3 hydrochlorothiazide 25 mg tablet 25 mg PO QAM Qty: 90 RF: 3 latanoprost 0.005 % drops 1 drp OPHTHALMIC QDAY RF: 0 cholecalciferol (vitamin D3) 2,000 unit capsule 2,000 unit PO QDAY RF: 0 ascorbate calcium PO QDAY RF: 0 linaclotide [Linzess] 290 mcg capsule 290 mcg PO QDAY RF: 0 omeprazole 20 mg capsule,delayed release(DR/EC) 20 mg PO QDAY Qty: 30 RF: 0 lactobacillus combination no.9 4 billion cell capsule 4 billion cell capsule 4,000 mmu cells PO QDAY RF: 0 Brinzolamide 1 gtt OU BID RF: 0 cyclosporine 1 EACH dropperette 1 gtt OU BID RF: 0 dextran 70-hypromellose 1 EACH dropperette 1 gtt OU PRN PRN (Reason: Dry Eye(S)) RF: 0
--- NOTE | 2020-01-16 15:48 | Internal Med History&Physical ---
HPI History of Present Illness Patient information: Note initiated : 01/16/20 at 3:48 pm Service Date, if different from initiated Date: [] Patient: Hany Barfield a 89 y/o F admitted on for blood pressure problem. Chief Complaint: [] History of present illness: Ms. Barfield is a 89 year old F with known history of CKD, chronic constipation, HTN who was referred by nephrology to the ER for evaluation of worsening lightheadedness dizziness weakness and elevated blood pressures. Initial work-up in the ER was consistent with systolics over 200. Patient received dose of hydralazine. She started experiencing worsening nausea and headache for which he underwent CT head which was unremarkable. Biochemical profile revealed sodium 122. Nephrology was consulted and subsequently hospitalist service was requested for admission. At the time of evaluation patient is very anxious. She demonstrates notable thought blocking and difficulty expressing herself. Systolics improved following hydralazine to 150s. Stat MRI ordered for evaluation of expressive aphasia. No difficulty swallowing or unilateral weakness. Denies thunderclap headache, diplopia, hemisensory deficits. Patient denies changes in medications. 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) Anemia, iron deficiency (Chronic) Anxiety (Chronic) Benign essential HTN (Chronic) Bladder infection, acute (Resolved) 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/06/14) Sochanski Carpal tunnel syndrome on both sides (Chronic) Cellulitis of left upper extremity (Resolved) Chronic constipation (Chronic) Chronic Kidney Disease (Chronic) Chronic kidney disease, stage III (moderate) (Chronic) Colon obstruction (Resolved) functional obstruction of the transverse colon Constipation (Chronic) Constipation by delayed colonic transit (Resolved) Essential hypertension (Chronic) I would describe this as isolated systolic hypertension of the elderly, not renal artery stenosis and secondary hypertension Glaucoma (Chronic) 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) Hyperlipidemia (Chronic) Hypertensive renal disease (Chronic) BP not at goal at home , on losartan 75 mg also has renal artery stenosis per CT 03/2018 on Right side Hyponatremia (Chronic) Ileus (Resolved) Non-cardiac chest pain (Resolved) Non-Hodgkin's lymphoma (Chronic) Osteoarthritis (Chronic) Osteoporosis (Chronic ~2018) hip Proteinuria (Chronic) Renal artery stenosis (Chronic 08/06/14) Renal insufficiency (Chronic 08/26/12) Rib fracture (Resolved) Secondary hyperparathyroidism of renal origin (Chronic) PTH 57 at goal for CKD stage III Vitamin D is 37.68, at goal Small B-cell lymphoma (Chronic) Large intestine Urinary tract infection (Resolved) with stress urinary incontinence Surgical History History of carpal tunnel surgery (Acute) History of cholecystectomy (Chronic) History of colonoscopy (Chronic 02/27/15) Dr. Chowdhury - No recurrent Lymphoma, No Polyps History of esophagogastroduodenoscopy (Chronic 02/27/15) Dr. Chowdhury History of hysterectomy (Chronic) reduction msm History of reduction mammoplasty (Chronic) 1986 Family History Mother Malignant neoplasm of breast Essential hypertension Sister Malignant neoplasm of ovary Brother Malignant neoplasm of prostate Social History (Updated 11/21/19 @ 09:40 by Ross Amaya MD, [facility] marital status: smoking status: Former smoker alcohol intake frequency: does not drink substance use type: does not use MEDS/ALLERGIES Home Medications and Allergies Home Medications Medication Instructions Recorded Confirmed Type latanoprost 0.005 % eye drops 1 drp OPHTHALMIC QDAY ml 12/04/14 01/16/20 History Brinzolamide 1 gtt OU BID 03/21/18 01/16/20 History cyclosporine 1 gtt OU BID 03/21/18 01/16/20 History dextran 70-hypromellose 1 gtt OU PRN PRN 03/21/18 01/16/20 History ascorbate calcium 1 tab PO QDAY 05/18/18 01/16/20 History cholecalciferol (vitamin D3) 50 2,000 unit PO QDAY 05/18/18 01/16/20 History mcg (2,000 unit) capsule linaclotide 290 mcg capsule 290 mcg PO QDAY 05/18/18 01/16/20 History lactobacillus combination no.9 4 4,000 mmu cells PO QDAY 05/23/19 01/16/20 History billion cell capsule omeprazole 20 mg capsule,delayed 20 mg PO QDAY #30 cap 09/19/19 01/16/20 Rx release losartan 100 mg tablet 100 mg PO BID #180 tab 01/12/20 01/16/20 Rx amlodipine 5 mg PO QAM 01/16/20 01/16/20 History Allergies Allergy/AdvReac Type Severity Reaction Status Date / Time hydrochlorothiazide AdvReac Severe hyponatremi Verified 01/16/20 22:11 a aspirin AdvReac Mild Kidney Verified 01/16/20 12:18 issues EXAM Constitutional Vitals: Temp Pulse Resp BP Pulse Ox 98.0 F 89 22 137/59 96 01/16/20 12:13 01/16/20 14:46 01/16/20 14:46 01/16/20 14:46 01/16/20 14:46 Anxious/hard of hearing Head normocephalic Oral cavity moist No ear nose discharge Conjugate gaze S1-S2 tachycardia, partial bundle block on telemetry monitoring Nonlabored breathing Nondistended abdomen Lower extremity no swelling Skin no suspicious lesion Psych anxious Neuro no evident monica-sensory or motor deficit DATA Data Completed and Pending Labs on day of discharge: Labs from last 24 hours 01/16/20 01/16/20 01/16/20 12:59 12:59 12:35 WBC 7.5 RBC 4.27 Hgb 12.6 Hct 37.2 POC Hct 41.0 MCV 87.1 MCH 29.5 MCHC 33.9 RDW 11.9 Plt Count 220 MPV 11.4 H Gran % 51.0 Lymph % (Auto) 39.4 [place] % (Auto) 8.5 Eos % (Auto) 0.4 Baso % (Auto) 0.7 Gran # 3.83 Lymph # (Auto) 2.96 [place] # (Auto) 0.64 Eos # (Auto) 0.03 Baso # (Auto) 0.05 POC Sodium 123 L Sodium 122 L POC Potassium 3.7 Potassium 3.7 POC Chloride 89 L Chloride 86 L Carbon Dioxide 21 L POC Total CO2 23 Anion Gap 15.0 POC BUN 24 H BUN 23 Creatinine 1.1 POC Creatinine 1.1 GFR Calculation 44 Glucose 106 H POC Glucose 105 Calcium 9.1 POC WB Ioniz Calcium 1.12 L Total Bilirubin 0.6 AST 24 ALT 16 Alkaline Phosphatase 104 Total Protein 7.1 Albumin 4.1 Globulin 3.0 Albumin/Globulin Ratio 1.4 Urine Color Yellow Urine Appearance Clear Urine pH 7.0 Ur Specific [place] 1.006 Urine Protein Neg Urine Glucose (UA) Negative Urine Ketones Neg Urine Occult Blood Neg Urine Nitrate Neg Urine Bilirubin Neg Urine Urobilinogen Neg Ur Leukocyte Esterase Neg Ur Culture Indicated? No A/P Narrative A/P Narrative: * Acute onset expressive aphasia-stat MRI brain/telemetry monitoring. CT head unremarkable. May represent dramatic hyponatremia manifestation. * Suboptimally controlled hypertension managed per nephrology. Status post hydralazine. Systolics around 150 * Nausea vomiting supportive management/crystalloid/antiemetics. Secondary to hyponatremia * Hyponatremia-symptomatic at 122. Managed per nephrology. Likely a thiazide m anifestation. Management per nephrology * History of CKD management per nephrology * GERD continue PPI * Glaucoma continue travoprost * Full code Plan * Inpatient admission * Hold thiazide * nephrology consult * MRI brain * Close neurochecks * PT OT nutrition support discharge planning * Primary medical condition management on home meds Time Spent With Patient Time: Total time spent is greater than 50% in coordination of care (as documented) at patient's floor/unit and/or counseling patient: Total time spent with greater than 50% in coordination of care (as documented) at patient's floor/unit and/or counseling patient:: Greater than 35 minutes
[2020-01-16] MEDS ORDERED: ONDANSETRON 4 MG ODT TABLET SL PRN (16:53)
[2020-01-16] MEDS ORDERED: MELATONIN 3 MG TABLET PO PRN (16:53)
[2020-01-16] MEDS ORDERED: POTASSIUM CHLORIDE 20 MEQ PACKET PO PRN (16:53)
[2020-01-16] MEDS ORDERED: BISACODYL 10 MG SUPP.RECT PR PRN (16:53)
[2020-01-16] MEDS ORDERED: ACETAMINOPHEN 650 MG/65 ML BOTTLE IV PRN (16:53)
[2020-01-16] MEDS ORDERED: hydrALAZINE 20 MG/ML VIAL IV PRN (16:53)
[2020-01-16] MEDS ORDERED: POLYETHYLENE GLYCOL 3350 17 GM PACKET PO PRN (16:53)
[2020-01-16] MEDS ORDERED: ONDANSETRON 4 MG/2 ML VIAL IV PRN (16:53)
[2020-01-16] MEDS ORDERED: METOPROLOL TARTRATE 5 MG/5 ML VIAL IV PRN (16:53)
[2020-01-16] MEDS ORDERED: MAGNESIUM SULFATE 2 GM/50 ML BAG IV PRN (16:53)
[2020-01-16] MEDS: ACETAMINOPHEN 325 MG TABLET PO PRN ×2 (18:27→23:27)
[2020-01-16] MEDS: 0.9 % SODIUM CHLORIDE 10 ML SYRINGE IV SCH (21:08)
[2020-01-16] MEDS: DOCUSATE SODIUM 100 MG CAPSULE PO SCH (21:10)
[2020-01-16] MEDS: SENNOSIDES/DOCUSATE SODIUM 1 TAB TABLET PO SCH (21:10)
[2020-01-16] MEDS: HEPARIN 5,000 UNIT/ML VIAL SQ SCH (21:28)
[2020-01-17 00:23] LABS: Potassium,Urine Random 31.4 mmol/L
[2020-01-17] MEDS: 0.9 % SODIUM CHLORIDE 10 ML SYRINGE IV SCH ×3 (05:31→20:35)
[2020-01-17 06:22] LABS: Hemoglobin 12.1 g/dL (11.2-15.7); Mean Cell Volume 87.1 fL (80.0-100.0); Mean Corpuscular HGB Conc 34.6 g/dL (31.0-36.0); Mean Platelet Volume 11.4 fL (7.4-10.4); Platelet Count 228 K/mcL (140-440); RBC 4.02 M/mcL (3.59-5.38); Red Cell Distribution Width 12.1 % (11.5-14.5); WBC 6.8 K/mcL (4.50-11.00)
--- NOTE | 2020-01-17 06:29 | Nephrology Consult Note ---
HPI Data of Consult Primary Care Provider: Ross Amaya M.D., F.A.A.F.P. Consult Narrative Chief complaint: Low energy History of present illness: 89-year-old female who I was asked to see for hyponatremia I saw the patient in the clinic 01/16/2020 in follow-up for hypertension and CKD. Her blood pressure was between 190 and 220 systolic so she was admitted to the hospital. Work-up revealed hyponatremia. She was drinking approximately 1.3 gallons of water and mention her diet was poor. She was also on hydrochlorothiazide. Hyponatremia has been improving, she says that she feels better. 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) Sochanski Carpal tunnel syndrome on both sides (Chronic) Cellulitis of left upper extremity (Resolved) Chronic constipation (Chronic) Chronic Kidney Disease (Chronic) Chronic kidney disease, stage III (moderate) (Chronic) Colon obstruction (Resolved) functional obstruction of the transverse colon Constipation (Chronic) Constipation by delayed colonic transit (Resolved) Essential hypertension (Chronic) I would describe this as isolated systolic hypertension of the elderly, not renal artery stenosis and secondary hypertension Glaucoma (Chronic) 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) Hyperlipidemia (Chronic) Hypertensive renal disease (Chronic) BP not at goal at home , on losartan 75 mg also has renal artery stenosis per CT 03/2018 on Right side Hyponatremia (Chronic) Ileus (Resolved) Non-cardiac chest pain (Resolved) Non-Hodgkin's lymphoma (Chronic) Osteoarthritis (Chronic) Osteoporosis (Chronic ~2017) hip Proteinuria (Chronic) Renal artery stenosis (Chronic 08/06/14) Renal insufficiency (Chronic 08/26/12) Rib fracture (Resolved) Secondary hyperparathyroidism of renal origin (Chronic) PTH 57 at goal for CKD stage III Vitamin D is 37.68, at goal Small B-cell lymphoma (Chronic) Large intestine Urinary tract infection (Resolved) with stress urinary incontinence Surgical History History of carpal tunnel surgery (Acute) History of cholecystectomy (Chronic) History of colonoscopy (Chronic 02/27/15) Dr. Chowdhury - No recurrent Lymphoma, No Polyps History of esophagogastroduodenoscopy (Chronic 02/27/15) Dr. Chowdhury History of hysterectomy (Chronic) reduction msm History of reduction mammoplasty (Chronic) 1986 Family History Mother Malignant neoplasm of breast Essential hypertension Sister Malignant neoplasm of ovary Brother Malignant neoplasm of prostate Social History (Updated 11/21/19 @ 09:40 by Ross Amaya MD, [facility]) marital status: smoking status: Former smoker alcohol intake frequency: does not drink substance use type: does not use MEDS/ALLERGIES Home Medications and Allergies Home Medications Medication Instructions Recorded Confirmed Type latanoprost 0.005 % eye drops 1 drp OPHTHALMIC QDAY ml 12/04/14 01/16/20 History Brinzolamide 1 gtt OU BID 03/21/18 01/16/20 History cyclosporine 1 gtt OU BID 03/21/18 01/16/20 History dextran 70-hypromellose 1 gtt OU PRN PRN 03/21/18 01/16/20 History ascorbate calcium 1 tab PO QDAY 05/18/18 01/16/20 History cholecalciferol (vitamin D3) 50 2,000 unit PO QDAY 05/18/18 01/16/20 History mcg (2,000 unit) capsule linaclotide 290 mcg capsule 290 mcg PO QDAY 05/18/18 01/16/20 History lactobacillus combination no.9 4 4,000 mmu cells PO QDAY 05/23/19 01/16/20 History billion cell capsule omeprazole 20 mg capsule,delayed 20 mg PO QDAY #30 cap 09/19/19 01/16/20 Rx release losartan 100 mg tablet 100 mg PO BID #180 tab 01/12/20 01/16/20 Rx amlodipine 5 mg PO QAM 01/16/20 01/16/20 History Allergies Allergy/AdvReac Type Severity Reaction Status Date / Time hydrochlorothiazide AdvReac Severe hyponatremi Verified 01/16/20 22:11 a aspirin AdvReac Mild Kidney Verified 01/16/20 12:18 issues Physical Examination Vital Signs Vital signs: Temp Pulse Resp BP Pulse Ox 36.4 C 110 H 10 L 160/77 95 01/17/20 04:13 01/16/20 16:52 01/17/20 05:13 01/17/20 05:13 01/17/20 04:13 Additional Exam Additional exam: General in no acute distress, sitting in a chair, PT/RN present in the room HEENT head is normocephalic, atraumatic; eyes nonicteric sclera Neck no JVD Chest nonlabored respirations, on room air, clear to auscultation bilaterally Cardiovascular regular rate and rhythm, present radial pulses Abdomen soft, nontender Extremities no clubbing, cyanosis, no edema Neuro alert, clear speech, moves all extremities Skin warm and dry Results Lab Results Result Diagrams: 01/17/20 05:15 01/17/20 08:58 Lab results: Most recent lab results Calcium 9.1 mg/dl (8.6-10.4) 01/16/20 12:59 A/P Assessment and plan (1) Hyponatremia: Status: Chronic Narrative A/P Narrative: Hyponatremia multifactorial: Significant fluid intake as described in HPI, poor p.o. intake, hydrochlorothiazide use Hydrochlorothiazide was added to her allergy list under adverse effects. Avoid thiazide diuretics for now on. Decrease fluid consumption to maximum 60 to 80 ounces a day, this was discussed with the patient Goal serum sodium 128-129 by 01/17/2020 at noon. As the patient has overcorrected she will receive D5 water. Approximate free water deficit 1.7 L. Normal saline stopped Continue serum sodium check every 4 hours, allowed to drink fluids of thirst Scr 1.2, eGFR 40. Stable renal function baseline Scr. 1-1.2, eGFR 41-45. Scr 1.1 at baseline 03/25/2019 Renal function good for age. Her risk factors are advanced age and hypertension. normal UPCR 03/2019 hemodynamics and volume Hypertensive, resume losartan 50 mg p.o. twice daily, amlodipine 5 mg p.o. daily. Monitor blood pressure closely. Further adjustment based on response Time Spent With Patient Time: Total time spent is greater than 50% in coordination of care (as documented) at patient's floor/unit and/or counseling patient: Total time spent with greater than 50% in coordination of care (as documented) at patient's floor/unit and/or counseling patient:: 25 - 35 minutes
[2020-01-17 06:42] LABS: ALT/SGPT 14 U/l (0-40); AST/SGOT 22 U/l (0-37); Albumin 3.6 gm/dL (3.2-5.2); Albumin/Globulin Ratio 1.4 (1.0-2.3); Alkaline Phosphatase 93 U/L (39-117); Bilirubin,Direct < 0.2 mg/dL (0.0-0.3); Bilirubin,Total 0.7 mg/dL (0.0-1.0); Blood Urea Nitrogen 14 mg/dl (8-23); Carbon Dioxide 23 mmol/L (22-30); Chloride 96 mmol/L (96-108); Globulin 2.6 gm/dL (2.2-3.7); Glomerular Filtration Rate 57; Glucose 93 mg/dL (70-105); Lactate Dehydrogenase 191 U/L (94-250); Triglycerides 49 mg/dl (<150)
[2020-01-17 06:44] LABS: Phosphorous 3.6 mg/dL (2.7-4.5)
[2020-01-17 07:17] LABS: Eosinophils % (Manual) 1 % (0-7); Lymphocytes % 44 % (15-49); Monocytes % (Manual) 7 % (1-12); Platelet Estimate NORMAL (NORMAL); RBC Morphology NORMAL (NORMAL); Reactive Lymphocytes 2 % (0-2); Segmented Neutrophils % 46 % (38-78)
[2020-01-17] MEDS: MULTIVIT,THER IRON,CA,FA & MIN 1 TABLET PO SCH (08:15)
[2020-01-17] MEDS: DOCUSATE SODIUM 100 MG CAPSULE PO SCH ×2 (08:16→20:35)
[2020-01-17] MEDS: LOSARTAN 50 MG TABLET PO SCH ×2 (08:16→20:35)
[2020-01-17] MEDS: HEPARIN 5,000 UNIT/ML VIAL SQ SCH ×2 (08:24→20:34)
--- NOTE | 2020-01-17 09:00 | Magnetic Resonance Report ---
CLINICAL INFORMATION: Expressive aphasia. Evaluate for CVA COMPARISON: Brain MRI 10/17/2010 TECHNIQUE:Sagittal T1 FLAIR, axial T1 FLAIR, T2 FLAIR propeller, T2 propeller, gradient, diffusion, ADC and coronal T2 weighted images were acquired. FINDINGS: The ventricles, sulci, fissures and cisterns are symmetrically enlarged compatible with moderate age-related atrophy - no extra-axial fluid collection or mass appreciated. Moderate chronic ischemic changes in the cerebral white matter with confluence in the periventricular regions show progression from the 2011 MRI. There are no region of restricted diffusion to suggest acute infarct. There is no intracerebral hemorrhage mass effect or edema. The signal void with in the intracerebral arteries, extra-axial cranial nerves, pituitary and orbits are all normal. IMPRESSION: Moderate atrophy and chronic ischemic changes in the cerebral white matter - expected for age. No evidence of acute CVA, hemorrhage or other acute intracerebral process. Interpreted and Authenticated by: Mikel Benitez 01/17/20
[2020-01-17] MEDS ORDERED: LORazepam 2 MG/ML VIAL IV ONE (10:00)
--- NOTE | 2020-01-17 10:03 | Internal Med Progress Note ---
SUBJECTIVE Subjective Patient information: Note initiated : 01/17/20 at 9:59 am Service Date, if different from initiated Date: [] Patient: Hany Barfield a 89 y/o F admitted on 01/16/20 for blood pressure problem. Chief Complaint: [] Ms. Barfield is a 89 year old F with known history of CKD, chronic constipation, HTN who was referred by nephrology to the ER for evaluation of worsening lightheadedness dizziness weakness and elevated blood pressures. Initial work-up in the ER was consistent with systolics over 200. Patient received dose of hydralazine. She started experiencing worsening nausea and headache for which he underwent CT head which was unremarkable. Biochemical profile revealed sodium 122. Nephrology was consulted and subsequently hospitalist service was requested for admission. At the time of evaluation patient is very anxious. She demonstrates notable thought blocking and difficulty expressing herself. Systolics improved following hydralazine to 150s. Stat MRI ordered for evaluation of expressive aphasia. No difficulty swallowing or unilateral weakness. Denies thunderclap headache, diplopia, hemisensory deficits. Patient denies changes in medications. Patient denies chest pain, diaphoresis or fever but remains anxious 01/16-patient feels a lot better. Symptoms fully resolved with improved nausea, headache and slurred speech. Ambulating with physical therapy. Sodium improved to 130. No fever chills. No additional concerns per nursing staff. Continuing nutrition support Constitutional Vitals: Vital Signs Temp Pulse Resp BP Pulse Ox 97.6 F 110 H 15 175/75 98 01/17/20 08:08 01/16/20 16:52 01/17/20 08:08 01/17/20 08:08 01/17/20 08:08 Period Temp Pulse Resp BP Sys/Tinsley Pulse Ox Last 24 Hr 97.6 F-98.8 F 73-110 10-24 115-206/54-133 93-100 Intake and Output 01/16/20 01/17/20 01/17/20 21:59 05:59 13:59 Intake Total 700 Output Total 1 6135 325 Balance 498 -5324 -257 Weight 57.697 kg alert oriented Hard of hearing No anxiety No telemetry events Intake & Output: Intake & Output 01/16/20 01/17/20 01/17/20 21:59 05:59 13:59 Intake Total 700 Output Total 1 1875 325 Balance 699 -1875 -325 Weight 57.697 kg Intake: IV 700 Sodium Chloride 0.9% 1,000 ml @ 700 500 mls/hr IV .Q2H [facility] Rx#: [id number] Output: Void Amount 8 325 # of times incontinent of urine 1 Other: Urine Appearance Clear Clear Urine Color Bright Yellow Pale Urine Odor Normal Stool Size Small Stool Color Brown # Bowel Movements 1 OBJ DATA Labs CBC & Chem 7: 01/17/20 05:15 01/17/20 05:15 Labs: Abnormal Lab Results 01/17/20 01/17/20 01/17/20 05:15 05:15 00:15 MPV 11.4 H POC Sodium Sodium 130 L 126 L POC Chloride Chloride Carbon Dioxide POC BUN Glucose Osmolality POC WB Ioniz Calcium 01/16/20 01/16/20 01/16/20 20:00 12:59 12:59 MPV POC Sodium 123 L Sodium 125 L 122 L POC Chloride 89 L Chloride 86 L Carbon Dioxide 21 L POC BUN 24 H Glucose 106 H Osmolality 269 L POC WB Ioniz Calcium 1.12 L 01/16/20 12:59 MPV 11.4 H POC Sodium Sodium POC Chloride Chloride Carbon Dioxide POC BUN Glucose Osmolality POC WB Ioniz Calcium Meds: Medications Acetaminophen (Tylenol) 650 mg PO Q4-6HP PRN; Protocol PRN Reason: Per Pain Protocol/Fever > 101 Last Admin: 01/16/20 23:27 Dose: 650 mg Documented by: Bisacodyl (Dulcolax) 10 mg [place] Q2-3DAYS PRN PRN Reason: Constipation Docusate Sodium (Colace) 100 mg PO BID [facility] Last Admin: 01/17/20 08:16 Dose: 100 mg Documented by: Heparin Sodium (Porcine) (Heparin) 5,000 unit SQ Q12 [facility] Last Admin: 01/17/20 08:24 Dose: 5,000 unit Documented by: Hydralazine HCl (Apresoline) 10 mg IV Q4-6HP PRN PRN Reason: Hypertension Sodium Chloride (Sodium Chloride 0.9%) 1,000 mls @ 50 mls/hr IV .Q20H [facility] Stop: 01/19/20 04:52 Last Admin: 01/16/20 21:29 Dose: 50 mls/hr Documented by: Acetaminophen (Ofirmev) 650 mg in 65 mls @ 130 mls/hr IV Q6HP PRN; Protocol PRN Reason: Per Pain Protocol/Fever > 101 Magnesium Sulfate (Magnesium Sulfate) 2 gm in 50 mls @ 50 mls/hr IV UD PRN PRN Reason: MG = or < 1.7 Iron Carb/Multivit/Development Team Lead/Folic Acid (Multivitamin W/Minerals) 1 tab PO DAILY [facility] Last Admin: 01/17/20 08:15 Dose: 1 tab Documented by: Lorazepam (Ativan) 0.5 mg IV ONCE ONE Stop: 01/17/20 10:01 Last Admin: 01/17/20 08:00 Dose: 0.5 mg Documented by: Losartan Potassium (Cozaar) 50 mg PO BID [facility] Last Admin: 01/17/20 08:16 Dose: 50 mg Documented by: Melatonin (Melatonin 3mg Tablet) 3 mg PO HSP PRN PRN Reason: Insomnia Metoprolol Tartrate (Lopressor) 5 mg IV Q5M PRN PRN Reason: Heart Rate > 140 bpm Ondansetron HCl (Zofran Odt) 4 mg SL Q4-6HP PRN; Protocol PRN Reason: Nausea And Vomiting Ondansetron HCl (Zofran) 4 mg IV Q4-6HP PRN; Protocol PRN Reason: Nausea And Vomiting Polyethylene Glycol (Miralax) 17 gm PO DAILYP PRN PRN Reason: Constipation Potassium Chloride (Klor-Con) 40 meq PO DAILYP PRN PRN Reason: K+ < 3.5 Senna/Docusate Sodium (Senna Plus Tablet) 1 tab PO HS [facility] Last Admin: 01/16/20 21:10 Dose: Not Given Documented by: Sodium Chloride (Saline Flush) 10 ml IV Q8 [facility] Last Admin: 01/17/20 05:31 Dose: 10 ml Documented by: A/P Narrative A/P Narrative: * Acute onset expressive aphasia-await MRI brain/echocardiogram results. No overnight telemetry events. CT head unremarkable. Rapid resolution following improvement in sodium. * Suboptimally controlled hypertension managed per nephrology. Ongoing management per nephrology recommendations. * Nausea vomiting supportive management/crystalloid/antiemetics. Secondary to hyponatremia, clinically resolved * Hyponatremia-symptomatic at 122-> 130. Managed per nephrology. Likely a thiazide manifestation. * History of CKD management per nephrology * GERD continue PPI * Glaucoma continue travoprost * Full code Plan * Aggressive PT OT * Await echocardiogram/MRI brain * Telemetry monitoring * Nutrition support * Discharge planning per case management Time Spent With Patient Time: Total time spent is greater than 50% in coordination of care (as documented) at patient's floor/unit and/or counseling patient: QUALITY VTE Deep Vein Thrombosis/Pulmonary Embolism Present on Admission: No
[2020-01-17] MEDS ORDERED: DEXTROSE 5% IN WATER 250 ML IV SCH (10:15)
[2020-01-17] MEDS: DEXTROSE 5% IN WATER 1,000 ML IV SCH ×2 (11:00→17:46)
[2020-01-17] MEDS: 0.9 % SODIUM CHLORIDE 1,000 ML IV SCH (12:53)
[2020-01-17] MEDS ORDERED: DEXTROSE 5%-NS 500 ML IV SCH (15:15)
[2020-01-17] MEDS: SENNOSIDES/DOCUSATE SODIUM 1 TAB TABLET PO SCH (20:35)
[2020-01-17] MEDS: amLODIPine 5 MG TABLET PO SCH (20:35)
[2020-01-17] MEDS ORDERED: MUPIROCIN OINT 2% 22GM NARES SCH (21:00)
[2020-01-18] MEDS: DEXTROSE 5% IN WATER 1,000 ML IV SCH ×4 (02:29→11:25)
[2020-01-18] MEDS: 0.9 % SODIUM CHLORIDE 10 ML SYRINGE IV SCH ×3 (05:28→20:25)
[2020-01-18 06:10] LABS: Hematocrit 34.1 % (34.1-44.9); Hemoglobin 11.3 g/dL (11.2-15.7); Mean Cell Volume 89.5 fL (80.0-100.0); Mean Corpuscular HGB Conc 33.1 g/dL (31.0-36.0); Mean Platelet Volume 11.5 fL (7.4-10.4); Platelet Count 214 K/mcL (140-440); RBC 3.81 M/mcL (3.59-5.38); Red Cell Distribution Width 12.1 % (11.5-14.5); WBC 6.7 K/mcL (4.50-11.00)
[2020-01-18 06:30] LABS: ALT/SGPT 14 U/l (0-40); AST/SGOT 22 U/l (0-37); Albumin 3.5 gm/dL (3.2-5.2); Albumin/Globulin Ratio 1.4 (1.0-2.3); Alkaline Phosphatase 85 U/L (39-117); Bilirubin,Direct < 0.2 mg/dL (0.0-0.3); Bilirubin,Total 0.5 mg/dL (0.0-1.0); Blood Urea Nitrogen 20 mg/dl (8-23); Calcium 8.4 mg/dl (8.6-10.4); Carbon Dioxide 22 mmol/L (22-30); Globulin 2.5 gm/dL (2.2-3.7); Glomerular Filtration Rate 57; Glucose 101 mg/dL (70-105); Lactate Dehydrogenase 173 U/L (94-250); Phosphorous 3.2 mg/dL (2.7-4.5); Triglycerides 46 mg/dl (<150); Uric Acid 3.7 mg/dL (2.5-8.0)
[2020-01-18 06:34] LABS: Chloride 94 mmol/L (96-108)
[2020-01-18] MEDS: OMEPRAZOLE 20 MG CAPSULE PO SCH (07:00)
--- NOTE | 2020-01-18 07:00 | XRay Report ---
CLINICAL INFORMATION: Interval Change COMPARISON: 03/21/2018 FINDINGS: Mild cardiomegaly is stable. Mediastinum and pulmonary vessels are unremarkable. Lungs are clear. No effusions. IMPRESSION: Mild stable cardiomegaly Interpreted and Authenticated by: Mikel Benitez 01/18/20
[2020-01-18] MEDS: LOSARTAN 50 MG TABLET PO SCH ×2 (07:34→20:24)
[2020-01-18 07:35] LABS: Band Neutrophils % 1 % (0-10); Eosinophils % (Manual) 2 % (0-7); Lymphocytes % 26 % (15-49); Monocytes % (Manual) 7 % (1-12); Platelet Estimate NORMAL (NORMAL); RBC Morphology NORMAL (NORMAL); Reactive Lymphocytes 1 % (0-2); Segmented Neutrophils % 63 % (38-78)
[2020-01-18] MEDS: DOCUSATE SODIUM 100 MG CAPSULE PO SCH ×2 (10:08→20:24)
[2020-01-18] MEDS: MULTIVIT,THER IRON,CA,FA & MIN 1 TABLET PO SCH (10:08)
[2020-01-18] MEDS: HEPARIN 5,000 UNIT/ML VIAL SQ SCH ×2 (10:08→20:25)
[2020-01-18] MEDS: LACTOBACILLUS 1 CAPSULE PO SCH (10:13)
[2020-01-18] MEDS: 0.9 % SODIUM CHLORIDE 1,000 ML IV SCH (11:27)
--- NOTE | 2020-01-18 12:23 | Nephrology Progress Note ---
SUBJECTIVE Subjective Patient information: Note initiated : 01/18/20 at 12:21 pm Service Date, if different from initiated Date: [] Patient: Hany Barfield 89 y/o F admitted on 01/16/20 for blood pressure problem. interval hx sitting in the chair, eating. no acute events Constitutional Vitals: Vital Signs Temp Pulse Resp BP Pulse Ox 36.8 C 65 20 181/55 100 01/18/20 12:01 01/18/20 02:00 01/18/20 12:01 01/18/20 12:01 01/18/20 12:01 Period Temp Pulse Resp BP Sys/Tinsley Pulse Ox Last 24 Hr 36.5 C-37.1 C 65-69 14-20 115-184/48-83 95-100 Intake and Output 01/17/20 01/18/20 01/18/20 21:59 05:59 13:59 Intake Total 1183 1150 1157 Output Total 425 1800 1200 Balance 758 -650 -43 Weight 59.052 kg Intake & Output: Intake & Output 01/17/20 01/18/20 01/18/20 21:59 05:59 13:59 Intake Total 1183 1150 1157 Output Total 425 1800 1200 Balance 758 -650 -43 Weight 59.052 kg Intake: IV 973 1000 1157 Dextrose 5% in Water 1,000 ml @ 973 1000 1120 150 mls/hr IV .Q6H40M [facility] Rx#: [id number] Oral 210 150 Output: Void Amount 425 1800 1200 Other: Meal Breakfast Percent of Meal Consumed 100% Feeding Ability Independent Urine Appearance Clear Clear Clear Urine Color Pale Bright Yellow Bright Yellow Urine Odor Normal Normal Normal Stool Size Small Small Stool Color Brown Brown HEENT nc, at, eyes non icteric sclerae pulmonary non labored respirations, on RA extremities no edema neuro clear speech, moves all extremities A/P Assessment and plan (1) Hyponatremia: Status: Chronic (2) Hypertension: Status: Chronic Narrative A/P Narrative: hyponatremia, moderate, asymptomatic - improved since admission. slight overcorrection on 01/17/2020, reversed with D5W D5W stopped, patient limiting amount of fluid consumption, max 2L per 24 hours repeat Na at 1500 and q6 hours Notify MD for serum Na lower than 126 or over 135 needs tighter BP control on losartan 50mg po bid and amlodipine 5mg po qhs add amlodipine 2.5mg po in am, first dose now PRN clonidine 0.1mg po for SBP over 150 Time Spent With Patient Time: Total time spent is greater than 50% in coordination of care (as documented) at patient's floor/unit and/or counseling patient:
[2020-01-18] MEDS: amLODIPine 5 MG TABLET PO SCH ×2 (13:02→20:24)
[2020-01-18 16:04] LABS: Albumin 3.6 gm/dL (3.2-5.2); Blood Urea Nitrogen 17 mg/dl (8-23); Calcium 8.8 mg/dl (8.6-10.4); Carbon Dioxide 19 mmol/L (22-30); Glomerular Filtration Rate 44; Glucose 104 mg/dL (70-105); Phosphorous 2.8 mg/dL (2.7-4.5)
[2020-01-18 16:19] LABS: Chloride 95 mmol/L (96-108)
[2020-01-18] MEDS: ACETAMINOPHEN 325 MG TABLET PO PRN (20:24)
[2020-01-18] MEDS: SENNOSIDES/DOCUSATE SODIUM 1 TAB TABLET PO SCH (20:24)
[2020-01-18] MEDS ORDERED: MAGNESIUM HYDROXIDE 30 ML ORAL.SUSP PO PRN (21:00)
[2020-01-18] MEDS ORDERED: LATANOPROST OPHTH DROPS 2.5ML BOTTLE OU SCH (21:00)
[2020-01-18] MEDS ORDERED: PATIENTS OWN MEDICATION 1 DOSE MISCELL BOTH EYES SCH (21:00)
[2020-01-19] MEDS: 0.9 % SODIUM CHLORIDE 10 ML SYRINGE IV SCH ×2 (05:18→08:00)
[2020-01-19 06:08] LABS: Hematocrit 35.4 % (34.1-44.9); Hemoglobin 11.5 g/dL (11.2-15.7); Mean Cell Volume 89.8 fL (80.0-100.0); Mean Corpuscular HGB Conc 32.5 g/dL (31.0-36.0); Mean Platelet Volume 11.2 fL (7.4-10.4); Platelet Count 225 K/mcL (140-440); RBC 3.94 M/mcL (3.59-5.38); Red Cell Distribution Width 12.3 % (11.5-14.5); WBC 5.7 K/mcL (4.50-11.00)
[2020-01-19 06:36] LABS: ALT/SGPT 15 U/l (0-40); AST/SGOT 21 U/l (0-37); Albumin 3.5 gm/dL (3.2-5.2); Albumin/Globulin Ratio 1.3 (1.0-2.3); Alkaline Phosphatase 87 U/L (39-117); Bilirubin,Direct < 0.2 mg/dL (0.0-0.3); Bilirubin,Total 0.3 mg/dL (0.0-1.0); Blood Urea Nitrogen 18 mg/dl (8-23); Calcium 8.9 mg/dl (8.6-10.4); Chloride 99 mmol/L (96-108); Globulin 2.7 gm/dL (2.2-3.7); Glomerular Filtration Rate 50; Glucose 95 mg/dL (70-105); Lactate Dehydrogenase 167 U/L (94-250); Phosphorous 2.5 mg/dL (2.7-4.5); Triglycerides 72 mg/dl (<150); Uric Acid 3.2 mg/dL (2.5-8.0)
[2020-01-19 06:40] LABS: Carbon Dioxide 24 mmol/L (22-30)
[2020-01-19] MEDS: OMEPRAZOLE 20 MG CAPSULE PO SCH (07:24)
[2020-01-19 08:08] LABS: Eosinophils % (Manual) 1 % (0-7); Lymphocytes % 42 % (15-49); Monocytes % (Manual) 5 % (1-12); Platelet Estimate NORMAL (NORMAL); RBC Morphology NORMAL (NORMAL); Segmented Neutrophils % 52 % (38-78)
--- NOTE | 2020-01-19 08:11 | Internal Med Progress Note ---
SUBJECTIVE Subjective Patient information: Note initiated : 01/18/20 at 8:06 am Service Date, if different from initiated Date: [] Patient: Hany Barfield 89 y/o F admitted on 01/16/20 for blood pressure problem. Chief Complaint: [] Ms. Barfield is a 89 year old F with known history of CKD, chronic constipation, HTN who was referred by nephrology to the ER for evaluation of worsening lightheadedness dizziness weakness and elevated blood pressures. Initial work-up in the ER was consistent with systolics over 200. Patient received dose of hydralazine. She started experiencing worsening nausea and headache for which he underwent CT head which was unremarkable. Biochemical profile revealed sodium 122. Nephrology was consulted and subsequently hospitalist service was requested for admission. At the time of evaluation patient is very anxious. She demonstrates notable thought blocking and difficulty expressing herself. Systolics improved following hydralazine to 150s. Stat MRI ordered for evaluation of expressive aphasia. No difficulty swallowing or unilateral weakness. Denies thunderclap headache, diplopia, hemisensory deficits. Patient denies changes in medications. Patient denies chest pain, diaphoresis or fever but remains anxious 01/16-patient feels a lot better. Symptoms fully resolved with improved nausea, headache and slurred speech. Ambulating with physical therapy. Sodium improved to 130. No fever chills. No additional concerns per nursing staff. Continuing nutrition support 01/17-patient doing well. Events. Sodium at 137. Managed per nephrology. Blood pressure remains elevated nephrology optimizing antihypertensives. 4 hourly sodium checks. Dissipate discharge once sodium normalizes and improved blood pressures in the next 48 hours Constitutional Vitals: Vital Signs Temp Pulse Resp BP Pulse Ox 98.4 F 65 20 160/66 98 01/19/20 04:00 01/18/20 02:00 01/19/20 04:00 01/19/20 06:00 01/19/20 04:00 Period Temp Pulse Resp BP Sys/T[place]ley Pulse Ox Last 24 Hr 97.8 F-98.5 F 16-20 118-181/52-66 90-100 Intake and Output 01/18/20 01/19/20 01/19/20 21:59 05:59 13:59 Intake Total 100 360 Output Total 825 1025 325 Balance -725 -665 -325 Weight 58.995 kg Alert oriented Nonlabored breathing No anxiety Nondistended abdomen Intake & Output: Intake & Output 01/18/20 01/19/20 01/19/20 21:59 05:59 13:59 Intake Total 100 360 Output Total 825 1025 325 Balance -725 -665 -325 Weight 58.995 kg Intake: Oral 100 360 Output: Void Amount 825 1025 325 Other: Meal Dinner Percent of Meal Consumed 50% Urine Appearance Clear Clear Clear Urine Color Bright Yellow Pale Pale Urine Odor Normal Normal OBJ DATA Labs CBC & Chem 7: 01/19/20 05:10 01/19/20 05:10 Labs: Abnormal Lab Results 01/19/20 01/19/20 01/18/20 05:10 05:10 18:52 MPV 11.2 H POC Sodium Sodium 130 L POC Chloride Chloride Carbon Dioxide POC BUN Glucose Osmolality Calcium POC WB Ioniz Calcium Phosphorus 2.5 L Magnesium 01/18/20 01/18/20 01/18/20 15:11 05:05 05:05 MPV 11.5 H POC Sodium Sodium 126 L 127 L POC Chloride Chloride 95 L 94 L Carbon Dioxide 19 L POC BUN Glucose Osmolality Calcium 8.4 L POC WB Ioniz Calcium Phosphorus Magnesium 1.5 L 01/17/20 01/17/20 01/17/20 16:00 08:58 05:15 MPV POC Sodium Sodium 131 L 132 L 130 L POC Chloride Chloride Carbon Dioxide POC BUN Glucose Osmolality Calcium POC WB Ioniz Calcium Phosphorus Magnesium 01/17/20 01/17/20 01/16/20 05:15 00:15 20:00 MPV 11.4 H POC Sodium Sodium 126 L 125 L POC Chloride Chloride Carbon Dioxide POC BUN Glucose Osmolality Calcium POC WB Ioniz Calcium Phosphorus Magnesium 01/16/20 01/16/20 01/16/20 12:59 12:59 12:59 MPV 11.4 H POC Sodium 123 L Sodium 122 L POC Chloride 89 L Chloride 86 L Carbon Dioxide 21 L POC BUN 24 H Glucose 106 H Osmolality 269 L Calcium POC WB Ioniz Calcium 1.12 L Phosphorus Magnesium Meds: Medications Acetaminophen (Tylenol) 650 mg PO Q4-6HP PRN; Protocol PRN Reason: Per Pain Protocol/Fever > 101 Last Admin: 01/18/20 20:24 Dose: 650 mg Documented by: Amlodipine Besylate (Norvasc) 5 mg PO HS [facility] Last Admin: 01/18/20 20:24 Dose: 5 mg Documented by: Amlodipine Besylate (Norvasc) 2.5 mg PO QAM [facility] Last Admin: 01/18/20 13:02 Dose: 2.5 mg Documented by: Bisacodyl (Dulcolax) 10 mg OR Q2-3DAYS PRN PRN Reason: Constipation Docusate Sodium (Colace) 100 mg PO BID [facility] Last Admin: 01/18/20 20:24 Dose: 100 mg Documented by: Heparin Sodium (Porcine) (Heparin) 5,000 unit SQ Q12 [facility] Last Admin: 01/18/20 20:25 Dose: 5,000 unit Documented by: Hydralazine HCl (Apresoline) 10 mg IV Q4-6HP PRN PRN Reason: Hypertension Acetaminophen (Ofirmev) 650 mg in 65 mls @ 130 mls/hr IV Q6HP PRN; Protocol PRN Reason: Per Pain Protocol/Fever > 101 Magnesium Sulfate (Magnesium Sulfate) 2 gm in 50 mls @ 50 mls/hr IV UD PRN PRN Reason: MG = or < 1.7 Last Infusion: 01/18/20 11:30 Dose: Infused Documented by: Iron Carb/Multivit/[place]/Folic Acid (Multivitamin W/Minerals) 1 tab PO DAILY [facility] Last Admin: 01/18/20 10:08 Dose: 1 tab Documented by: Lactobacillus Rhamnosus (Culturelle) 1 cap PO QDAY [facility] Last Admin: 01/18/20 10:13 Dose: 1 cap Documented by: Latanoprost (Xalatan Ophth Drops) 1 gtt OU [facility] Last Admin: 01/18/20 20:25 Dose: 1 gtt Documented by: Losartan Potassium (Cozaar) 50 mg PO BID [facility] Last Admin: 01/18/20 20:24 Dose: 50 mg Documented by: Magnesium Hydroxide (Milk Of Magnesia) 30 ml PO HSP PRN PRN Reason: Constipation Last Admin: 01/18/20 20:46 Dose: 30 ml Documented by: Melatonin (Melatonin 3mg Tablet) 3 mg PO HSP PRN PRN Reason: Insomnia Metoprolol Tartrate (Lopressor) 5 mg IV Q5M PRN PRN Reason: Heart Rate > 140 bpm Omeprazole (Prilosec) 20 mg PO QAMAC [facility] Last Admin: 01/19/20 07:24 Dose: 20 mg Documented by: Ondansetron HCl (Zofran Odt) 4 mg SL Q4-6HP PRN; Protocol PRN Reason: Nausea And Vomiting Ondansetron HCl (Zofran) 4 mg IV Q4-6HP PRN; Protocol PRN Reason: Nausea And Vomiting Brinzolamide Eye (Drops) 1 dose OU BID [facility] Last Admin: 01/18/20 20:25 Dose: 1 dose Documented by: Linaclotide [Linzess (] 290 Mcg Cap) 1 dose PO QDAY [facility] Last Admin: 01/19/20 07:24 Dose: 1 dose Documented by: Polyethylene Glycol (Miralax) 17 gm PO DAILYP PRN PRN Reason: Constipation Potassium Chloride (Klor-Con) 40 meq PO DAILYP PRN PRN Reason: K+ < 3.5 Senna/Docusate Sodium (Senna Plus Tablet) 1 tab PO HS [facility] Last Admin: 01/18/20 20:24 Dose: 1 tab Documented by: Sodium Chloride (Saline Flush) 10 ml IV Q8 [facility] Last Admin: 01/19/20 05:18 Dose: 10 ml Documented by: A/P Narrative A/P Narrative: * Hyponatremia-symptomatic at 122-> 127. Managed per nephrology. Likely a thiazide manifestation. * Acute onset expressive aphasia-MRI brain no evidence of acute process. CT head unremarkable. Echocardiogram normal LV and RV function. Rapid resolution following improvement in sodium. * Suboptimally controlled hypertension managed per nephrology. Acacian titr ation ongoing per nephrology * Nausea vomiting supportive management/crystalloid/antiemetics. Secondary to hyponatremia, much improved * History of CKD management per nephrology * GERD continue PPI * Glaucoma continue travoprost * Full code Plan * Nutrition support/therapies * Continue sodium checks * Optimize antihypertensives per nephrology * Discharge planning per case management * Discharge planning per case management Time Spent With Patient Time: Total time spent is greater than 50% in coordination of care (as documente d) at patient's floor/unit and/or counseling patient: Total time spent with greater than 50% in coordination of care (as documented) at patient's floor/unit and/or counseling patient:: Greater than 35 minutes QUALITY VTE Deep Vein Thrombosis/Pulmonary Embolism Present on Admission: No
[2020-01-19] MEDS: LACTOBACILLUS 1 CAPSULE PO SCH (08:59)
[2020-01-19] MEDS ORDERED: HEPARIN 5,000 UNIT/ML VIAL SQ SCH (09:00)
[2020-01-19] MEDS: DOCUSATE SODIUM 100 MG CAPSULE PO SCH (09:00)
[2020-01-19] MEDS: LOSARTAN 50 MG TABLET PO SCH (09:00)
[2020-01-19] MEDS: MULTIVIT,THER IRON,CA,FA & MIN 1 TABLET PO SCH (09:00)
[2020-01-19] MEDS: amLODIPine 5 MG TABLET PO SCH (09:01)
--- NOTE | 2020-01-19 09:08 | Discharge Summary ---
Discharge Provider Provider Patient information: Note initiated : 01/19/20 at 8:59 am Service Date, if different from initiated Date: [] Discharge diagnosis * Hyponatremia-symptomatic at 122-> 135. Likely thiazide manifestation. Discontinue thiazide and add amlodipine nephrology. Patient now feels at baseline. Discharging today * Acute onset expressive aphasia-MRI brain no evidence of acute process. CT head unremarkable. Echocardiogram normal LV and RV function. Rapid resolution following improvement in sodium. * Suboptimally controlled hypertension clinically improved with addition of 2.5 amlodipine in a.m. 5 mg at bedtime along with losartan 50 twice daily. * Nausea vomiting supportive management/crystalloid/antiemetics. Secondary to hyponatremia, much improved * History of CKD management per nephrology * GERD continue PPI * Glaucoma continue travoprost Brief hospital course Ms. Barfield is a 89 year old F with known history of CKD, chronic constipation, HTN who was referred by nephrology to the ER for evaluation of worsening li ghtheadedness dizziness weakness and elevated blood pressures. Initial work-up in the ER was consistent with systolics over 200. Patient received dose of hydralazine. She started experiencing worsening nausea and headache for which he underwent CT head which was unremarkable. Biochemical profile revealed sodium 122. Nephrology was consulted and subsequently hospitalist service was requested for admission. At the time of evaluation patient is very anxious. She demonstrates notable thought blocking and difficulty expressing herself. Systolics improved following hydralazine to 150s. Stat MRI ordered for evaluation of expressive aphasia. No difficulty swallowing or unilateral weakness. Denies thunderclap headache, diplopia, hemisensory deficits. Patient denies changes in medications . Patient denies chest pain, diaphoresis or fever but remains anxious 8/-patient feels a lot better. Symptoms fully resolved with improved nausea, headache and slurred speech. Ambulating with physical therapy. Sodium improved to 130. No fever chills. No additional concerns per nursing staff. Continuing nutrition support 01/17-patient doing well. Events. Sodium at 137. Managed per nephrology. Blood pressure remains elevated nephrology optimizing antihypertensives. 4 hourly sodium checks. Dissipate discharge once sodium normalizes and improved blood pressures in the next 48 hours 01/18-patient clinically improved. Sodium is 135. On losartan 50 twice daily and amlodipine 5 at bedtime. Additional 2.5 amlodipine added per nephrology. Adequate response noted. Discharging with advised to continue follow-up with nephrology as outpatient. Per nephrology recommendations patient will advised with maximum 80 ounces of fluids per day Date of admission: 01/16/20 16:52 Primary care physician: Ross Amaya M.D., F.A.A.F.P. Consults: 01/16/20 Consult to Physician [CONS] Stat Comment: Consulting Provider: Flo Neves Reason For Exam: Physician to Consult 01/16/20 16:18 Consult to Physician [CONS] Stat Comment: Consulting Provider: Basia Lira Reason For Exam: Physician to Consult Discharge Meds Discharge Medications Home Medications latanoprost 0.005 % eye drops 1 drp OPHTHALMIC HS ml 12/04/14 [History Confirmed 01/18/20 Last Taken 03/20/18 17:00] Brinzolamide 1 gtt OU BID 03/21/18 [History Confirmed 01/16/20 Last Taken 03/21/18 07:00] ascorbate calcium 1 tab PO QDAY 05/18/18 [History Confirmed 01/16/20 Last Taken Unknown] cholecalciferol (vitamin D3) 50 mcg (2,000 unit) capsule 2,000 unit PO QDAY 05/18/18 [History Confirmed 01/16/20 Last Taken Unknown] linaclotide 290 mcg capsule 290 mcg PO QDAY 05/18/18 [History Confirmed 01/16/20 Last Taken Unknown] lactobacillus combination no.9 4 billion cell capsule 4,000 mmu cells PO QDAY 05/23/19 [History Confirmed 01/16/20 Last Taken Unknown] omeprazole 20 mg capsule,delayed release 20 mg PO QDAY #30 cap 09/19/19 [Rx Confirmed 01/16/20 Last Taken Unknown] amlodipine 2.5 mg PO QAM #30 tab 01/19/20 [Rx Last Taken Unknown] amlodipine 5 mg PO HS #30 tab 01/19/20 [Rx Last Taken Unknown] losartan [Cozaar] 50 mg PO BID #30 tab 01/19/20 [Rx Last Taken Unknown] COURSE Time Spent with Patient Time attestation: Total time spent providing and/or coordinating discharge services: EXAM Constitutional Vitals: Temp Pulse Resp BP Pulse Ox 97.7 F 65 20 152/79 98 01/19/20 08:08 01/18/20 02:00 08/06/20 04:00 01/19/20 08:08 01/19/20 08:08 Discharge Data Data Completed and Pending Labs on day of discharge: Labs from last 24 hours 01/19/20 01/19/20 01/18/20 05:10 05:10 18:52 WBC 5.7 RBC 3.94 Hgb 11.5 Hct 35.4 MCV 89.8 MCH 29.2 MCHC 32.5 RDW 12.3 Plt Count 225 MPV 11.2 H Total Counted 100 Seg Neutrophils % 52 Band Neutrophils % Not Reportable Lymphocytes % 42 Monocytes % (Manual) 5 Eosinophils % (Manual) 1 Platelet Estimate Normal RBC Morphology Normal Sodium 135 130 L Potassium 4.2 Chloride 99 Carbon Dioxide 24 Anion Gap 12.0 BUN 18 Creatinine 1.0 GFR Calculation 50 Glucose 95 Uric Acid 3.2 Calcium 8.9 Phosphorus 2.5 L Magnesium 2.0 Total Bilirubin 0.3 Direct Bilirubin < 0.2 GGT 25 AST 21 ALT 15 Alkaline Phosphatase 87 Lactate Dehydrogenase 167 Total Protein 6.2 Albumin 3.5 Globulin 2.7 Albumin/Globulin Ratio 1.3 Triglycerides 72 01/18/20 15:11 WBC RBC Hgb Hct MCV MCH MCHC RDW Plt Count MPV Total Counted Seg Neutrophils % Band Neutrophils % Lymphocytes % Monocytes % (Manual) Eosinophils % (Manual) Platelet Estimate RBC Morphology Sodium 126 L Potassium 4.0 Chloride 95 L Carbon Dioxide 19 L Anion Gap 12.0 BUN 17 Creatinine 1.1 GFR Calculation 44 Glucose 104 Uric Acid Calcium 8.8 Phosphorus 2.8 Magnesium Total Bilirubin Direct Bilirubin GGT AST ALT Alkaline Phosphatase Lactate Dehydrogenase Total Protein Albumin 3.6 Globulin Albumin/Globulin Ratio Triglycerides Discharge Plan Patient/Caregiver Discharge Instructions Activity: increase activity as tolerated Activity Restrictions/Additional Instructions: Follow-up PCP in [5] days Follow-up with nephrology Dr. García in 1 week Continue amlodipine losartan 50 twice daily, 2.5 mg a.m. and 5 mg at bedtime Restrict fluid intake to 80 ounces per 24 hours I recommend primary care physician to check CBC BMP UA as a posthospital follow- up in 1 week Continue aggressive bowel regimen to prevent constipation Maintain fall precautions High protein calorie supplements All meals on chair sitting upright at 90 degrees to prevent aspiration Return to ER if worsening fever chills shortness of breath, diarrhea, bleeding Continue diet and activity as advised Discussed importance of medication adherence Please review medication list with patient prior to discharge Please schedule follow-up with PCP/Providers prior to discharge and provide printouts Prescriptions: New losartan [Cozaar] 50 mg Tablet 50 mg PO BID Qty: 30 RF: 0 amlodipine 5 mg Tablet 5 mg PO HS Qty: 30 RF: 0 amlodipine 5 mg Tablet 2.5 mg PO QAM Qty: 30 RF: 0 Continued latanoprost 0.005 % drops 1 drp OPHTHALMIC HS RF: 0 cholecalciferol (vitamin D3) 2,000 unit capsule 2,000 unit PO QDAY RF: 0 ascorbate calcium 1 tab PO QDAY RF: 0 linaclotide [Linzess] 290 mcg capsule 290 mcg PO QDAY RF: 0 omeprazole 20 mg capsule,delayed release(DR/EC) 20 mg PO QDAY Qty: 30 RF: 0 lactobacillus combination no.9 4 billion cell capsule 4 billion cell capsule 4,000 mmu cells PO QDAY RF: 0 Brinzolamide 1 gtt OU BID RF: 0 Discontinued losartan 100 mg tablet 100 mg PO BID Qty: 180 RF: 3 amlodipine 5 mg tablet 5 mg PO QAM RF: 0 Follow Up Plan Follow up with: Basia Lira MD [Physician] - Ross Amaya MD, FAAFP [Primary Care Provider] - Patient Disposition: Home, Self-Care Prognosis: Fair Rehab Potential: Fair I certify that the patient requires SNF services: No Overall status at discharge: patient is progressing back to baseline Discharge Orders: Discharge Order (Routine); Ordered 01/19/20 Ordered By: Flo LEVI VTE Deep Vein Thrombosis/Pulmonary Embolism Present on Admission: No
== END 2020-01-19 11:55 | disposition home or self-care (01) | DRG 641 ==
LOC: ED 12:13 → ICU 16:41
PROVIDERS: ADMIT Internal Medicine; ATTEND Internal Medicine